=== PATIENT | female | born 1945 | race Caucasian/White ===

== ENCOUNTER → 2017-03-12 | Outpatient (CLI) | payer BC ==
--- NOTE | 2017-03-12 14:58 | MAMMOGRAPHY REPORT ---
BILATERAL DIGITAL SCREENING MAMMOGRAM WITH CAD: 03/12/2017 CLINICAL HISTORY: Routine screening. Patient has no complaints. TECHNIQUE: Bilateral CC and MLO views were obtained. Current study was also evaluated with a Comput er Aided Detection (CAD) system. COMPARISON: Comparison is made to exams dated: 03/08/2016 mammogram, 03/08/2015 mammogram, 03/04/2014 mammogram, 03/02/2013 mammogram, 02/25/2012 mammogram, and 02/20/2010 mammogram - [facility]. BREAST COMPOSITION: There are scattered areas of fibroglandular density in both breasts. FINDINGS: No new suspicious mass, architectural distortion or cluster of microcalcifications is see n. IMPRESSION: ACR BI-RADS CATEGORY 1: NEGATIVE There is no mammographic evidence of malignancy. A 1 year screening mammogram is recommended. The p atient will receive written notification of the results. Approximately 10% of breast cancers are not detected with mammography. A negative mammographic repor t should not delay biopsy if a clinically suggestive mass is present. Elaine Peralta M.D. ay/:03/12/2017 13:01:38 [employer]: Mansi QUESADA(Mayda)(M), [facility] letter sent: Normal 1/2 BI-RADS Code: ACR BI-RADS Category 1: Negative
== END | disposition home or self-care (01) ==
LOC: C.MAMM 08:59
PROVIDERS: ATTEND Family Medicine
DX: Z12.31 Encounter for screening mammogram for malignant neoplasm of breast (principal)

== ENCOUNTER → 2017-04-09 | Outpatient (CLI) | payer BC ==
--- NOTE | 2017-04-09 20:00 | DIAGNOSTIC IMAGING REPORT ---
LEFT SHOULDER MIN 2 VIEWS ROUTINE CLINICAL HISTORY: PAIN IN L SHOULDER COMPARISON: None. DISCUSSION: Considerable degenerative change of the glenoid and associated articular services of the humeral head. Mild subtle Hill-Sachs type deformity. As a nonacute finding. All remaining osseous structures are unremarkable. Subchondral cysts are noted throughout. There is no evidence for soft tissue swelling. IMPRESSION: Severe degenerative change. No acute process. Electronically signed by: Sandip Crook M.D. 04/09/2017 7:58 PM Dictated Date/Time: 04/09/2017 7:58 PM
== END | disposition home or self-care (01) ==
LOC: C.RAD 19:37
PROVIDERS: ATTEND Family Medicine
DX: M25.512 Pain in left shoulder (principal)

== ENCOUNTER → 2017-08-29 | Outpatient (CLI) | payer BC ==
--- NOTE | 2017-08-29 13:48 | DIAGNOSTIC IMAGING REPORT ---
R HIP UNILATERAL MIN 2 VIEWS CLINICAL HISTORY: Right hip pain COMPARISON: None. DISCUSSION: No acute fractures are visualized. There are osteoarthritic changes with mild to moderate joint space narrowing. There are no erosive or destructive changes. IMPRESSION: 1. Osteoarthritic change 2. No fractures identified. Electronically signed by: Magdaleno Henriquez M.D. 08/29/2017 1:46 PM Dictated Date/Time: 08/29/2017 1:46 PM
== END | disposition home or self-care (01) ==
LOC: C.RDSM 12:43
PROVIDERS: ATTEND Family Medicine
DX: M25.551 Pain in right hip (principal)

== ENCOUNTER 2020-03-14 15:07 | Observation (INO) ==
--- NOTE | 2020-03-14 15:24 | Emergency Department Note ---
Impression & Plan Atypical chest pain, Light-headed ED Provider Note NAME: PEDRO AVENDAÑO AGE: 74 SEX: F : 1945 ARRIVES VIA: Walk-In INFORMANT: Patient, ED PROVIDER(S): Moody Slaughter MD Chief Complaint: Chest pain HPI: Patient is present with concern for chest pain. Patient describes it as right-sided and substernal. Nonradiating but does also have left shoulder pain. Patient denies any diaphoresis, nausea vomiting. No exertional symptoms but the patient has not been active. Pain started just prior to arrival. The patient was watching TV and was not doing anything exertional. The patient denies history of heart or lung history. Patient has no history of DVT or PE no recent travel. Did try taking Rolaids prior to arrival but that did not improve her symptoms. Patient does not present with cough, fevers, chills, coronavirus contacts, coronavirus testing, or recent travel. ROS: See HPI for pertinent positives and negatives. A total of 10 systems were reviewed and otherwise negative. Past medical history: See below Surgical history: See below Social history: See below Physical Exam: GENERAL: Nontoxic, wearing a mask and glasses. EYE EXAM: Normal conjunctiva. PERRL, no anisocoria and EOM's grossly intact w/o pain. NECK: Supple, no nuchal rigidity, no adenopathy, non-tender. No signs of m eningismus. Chest: No reproducible chest wall pain or crepitus noted. LUNGS: Clear to auscultation. Normal chest wall mechanics. HEART: NSR, no MRG. ABDOMEN: Abdomen soft, non-tender, normo-active bowel sounds, no masses, no rebound or guarding. BACK: No CVA TTP. SKIN: No rashes and no bruising. UPPER EXTREMITIES: Upper extremities are grossly normal. LOWER EXTREMITIES: Grossly normal, no edema. Negative Homans sign bilaterally. NEURO EXAM: A&O x3, cranial nerves II-XII grossly intact, normal speech, moves all 4 extremities on command w/o issue. Differential diagnoses: Cardiac ischemia, aortic dissection, pulmonary embolism, pneumothorax, pneumonia, pericarditis, myocarditis, esophageal rupture, GERD, cholecystitis, pancreatitis, musculoskeletal, as well as other pathologies. Course: Patient was seen and evaluated the bedside. Full history physical exam was performed. EKG: Indication: Chest pain Sinus rhythm with first-degree AV block, rate of 95, normal QRS, normal axis, T wave inversion in lead III and aVF. No obvious ST changes. T wave inversion may be new compared to 02/26 2006 but does appear to be flat in 2005 with T wave version in lead III being unchanged from before. Patient's first-degree AV block is new. Repeat completed at 1619 Sinus rhythm with first-degree AV block, rate of 89, normal QRS duration and normal axis. T wave version in lead III and aVF. No significant change from earlier EKG during visit. Imaging Studies: Radiology results as stated below per my review in the radiologist's interpretation: XR chest 1V portable CLINICAL HISTORY: Chest Pain dyspnea COMPARISON STUDY: No previous studies for comparison. FINDINGS: Mild cardiomegaly. Fixed hiatal hernia. Minimal atelectasis left base. Lungs otherwise appear clear. IMPRESSION: Hiatal hernia. Atelectasis left base. ACT 112: Negative or not required by law. The above report was generated using voice recognition software. It may contain grammatical, syntax or spelling errors. Electronically signed by: Sandip Crook M.D. 03/14/2020 4:20 PM Dictated: 03/14/20 1620 Transcribed: 03/14/20 1620 Cardiac monitoring: An order was placed for continuous cardiac monitoring. The monitor shows a rate of 96 with sinus rhythm. MDM: She did present with concern for chest pain. Blood work was obtained along with an EKG troponin and chest x-ray. The patient had been set up for chest x-ray noticed a slight drop in her heart rate and blood pressure. Patient may have h ad a vagal response. Repeat EKG and [id number] blood glucose were obtained. EKG is unchanged. Heart rate did improve with laying flat. IV fluids were administered and BSG was 126. Upon reassessment the patient did feel improved after the aspirin and nitro. In the improvement of her chest pain as well as her age believe the patient would benefit from observation and treatment. I did speak the on-call hospitalist and the patient was admitted to the [facility] medicine service under Dr. De Leon. 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 Social History Preferred Language: Macanese Communication Ability: Effective Beliefs That Will Affect Care: None Current Living Situation: Spouse Feels Safe at Home: Yes Safety Concerns: Feels Safe At This Time Smoking Status: Never smoker Hx Alcohol Use: No Hx Substance Use: No Allergies Allergies Allergy/AdvReac Type Severity Reaction Status Date / Time No Known Allergies Allergy Unknown Verified 03/14/20 15:37 Home Meds Home Medications Medication Instructions Recorded Confirmed No Known Home Medications 03/14/20 03/14/20 Results & Data (ED) Vital Signs Vital Signs - 24 hr 03/14/20 15:09 03/14/20 15:29 03/14/20 15:30 Temperature 36.7 C Temperature Source Oral Pulse Rate 101 H 95 H 93 H Pulse Rate from SpO2 Sensor Respiratory Rate 20 25 H 21 Respiratory Effort / Characteristics Non-Labored Spontaneous Respiratory Depth Normal Respiratory Pattern Regular Blood Pressure 151/87 H Blood Pressure Mean 108 Pulse Oximetry 95 Oxygen Delivery Method Room Air Sepsis Recent Fever Within 48 Hours No Sepsis Action Taken by Nursing No Action Required 03/14/20 16:00 03/14/20 16:13 03/14/20 16:14 Temperature Temperature Source Pulse Rate 86 93 H Pulse Rate from SpO2 Sensor 92 H Respiratory Rate 26 H 26 H Respiratory Effort / Characteristics Respiratory Depth Respiratory Pattern Blood Pressure 142/74 H Blood Pressure Mean 95 Pulse Oximetry 91 89 L Oxygen Delivery Method Room Air Sepsis Recent Fever Within 48 Hours Sepsis Action Taken by Nursing 03/14/20 16:18 03/14/20 16:22 03/14/20 16:30 Temperature Temperature Source Pulse Rate 96 H 84 89 Pulse Rate from SpO2 Sensor 90 84 89 Respiratory Rate 18 23 16 Respiratory Effort / Characteristics Respiratory Depth Respiratory Pattern Blood Pressure 97/60 L 120/67 Blood Pressure Mean 76 85 Pulse Oximetry 87 L 95 89 L Oxygen Delivery Method Sepsis Recent Fever Within 48 Hours Sepsis Action Taken by Nursing 03/14/20 17:00 03/14/20 17:01 03/14/20 17:26 Temperature Temperature Source Pulse Rate 100 H 100 H 103 H Pulse Rate from SpO2 Sensor 99 H 99 H Respiratory Rate 14 13 16 Respiratory Effort / Characteristics Respiratory Depth Respiratory Pattern Blood Pressure 120/67 120/54 L Blood Pressure Mean 85 68 Pulse Oximetry 90 90 Oxygen Delivery Method Sepsis Recent Fever Within 48 Hours Sepsis Action Taken by Nursing 03/14/20 17:30 03/14/20 18:00 03/14/20 18:14 Temperature Temperature Source Pulse Rate 103 H 102 H Pulse Rate from SpO2 Sensor 102 H Respiratory Rate 15 20 Respiratory Effort / Characteristics Respiratory Depth Respiratory Pattern Blood Pressure 117/61 127/79 Blood Pressure Mean 83 88 Pulse Oximetry 94 93 Oxygen Delivery Method Room Air Sepsis Recent Fever Within 48 Hours Sepsis Action Taken by Nursing 03/14/20 18:30 03/14/20 18:40 03/14/20 18:50 Temperature Temperature Source Pulse Rate 106 H 104 H 106 H Pulse Rate from SpO2 Sensor 107 H 103 H 108 H Respiratory Rate 20 19 20 Respiratory Effort / Characteristics Respiratory Depth Respiratory Pattern Blood Pressure 110/75 Blood Pressure Mean 90 Pulse Oximetry 91 91 90 Oxygen Delivery Method Sepsis Recent Fever Within 48 Hours Sepsis Action Taken by Nursing 03/14/20 19:00 03/14/20 19:10 Temperature Temperature Source Pulse Rate 104 H 103 H Pulse Rate from SpO2 Sensor 105 H 104 H Respiratory Rate 26 H 18 Respiratory Effort / Characteristics Respiratory Depth Respiratory Pattern Blood Pressure 115/63 Blood Pressure Mean 67 Pulse Oximetry 91 91 Oxygen Delivery Method Sepsis Recent Fever Within 48 Hours Sepsis Action Taken by Long-Term Medications Current Medication List: was personally reviewed by me Laboratory Data Attestation: I reviewed the patient's lab results. Result diagrams: 03/14/20 16:05 03/14/20 16:05 Lab Results 03/14/20 03/14/20 03/14/20 Range/Units 16:05 16:05 16:05 WBC 6.29 (4.8-10.8) K/uL RBC 5.52 H (4.2-5.4) M/uL Hgb 15.1 (12.0-16.0) g/dL Hct 46.6 (37-47) % MCV 84.4 (80-100) fL MCH 27.4 (25-34) pg MCHC 32.4 (32-36) g/dL RDW Std Deviation 43.1 (36.4-46.3) fL RDW Coeff of Vincenzo 14.0 (11.5-14.5) % Plt Count 202 (130-400) K/uL MPV 9.3 (7.4-10.4) fL Immature Gran % (Auto) 0.3 % Neut % (Auto) 68.2 % Lymph % (Auto) 22.9 % [place] % (Auto) 7.2 % Eos % (Auto) 1.1 % Baso % (Auto) 0.3 % Immature Gran # (Auto) 0.02 (0.00-0.02) K/uL Neut # (Auto) 4.29 (1.4-6.5) K/uL Lymph # (Auto) 1.44 (1.2-3.4) K/uL [place] # (Auto) 0.45 (0.11-0.59) K/uL Eos # (Auto) 0.07 (0-0.5) K/uL Baso # (Auto) 0.02 (0-0.2) K/uL PT 10.7 (9.0-12.0) Seconds INR 1.0 (0.9-1.1) APTT 24.8 (21.0-31.0) Seconds PTT Ratio 0.9 D-Dimer (0-500) ug/L FEU Sodium 141 (136-145) mmol/L Potassium 3.7 (3.5-5.1) mmol/L Chloride 106 (98-107) mmol/L Carbon Dioxide 28 (21-32) mmol/L Anion Gap 7.0 (3-11) BUN 15 (7-18) mg/dl Creatinine 0.84 (0.6-1.2) mg/dl Est Cr Clr Drug Dosing 51.5 ml/min Est GFR ( Amer) 78.2 Est GFR (Non-Af Amer) 67.5 BUN/Creatinine Ratio 17.9 (10-20) Glucose 113 H (70-99) mg/dl POC Glucose (70-99) mg/dl Calcium 9.6 (8.5-10.1) mg/dl Total Bilirubin 0.3 (0.2-1) mg/dl AST 13 L (15-37) U/L ALT 19 (12-78) U/L Alkaline Phosphatase 97 (45-117) U/L Troponin I < 0.015 (0-0.045) ng/ml Total Protein 7.5 (6.4-8.2) gm/dl Albumin 3.8 (3.4-5.0) gm/dl Globulin 3.7 (2.5-4.0) gm/dl Albumin/Globulin Ratio 1.0 (0.9-2) Lipase 159 (73-393) U/L 03/14/20 03/14/20 Range/Units 16:05 16:22 WBC (4.8-10.8) K/uL RBC (4.2-5.4) M/uL Hgb (12.0-16.0) g/dL Hct (37-47) % MCV (80-100) fL MCH (25-34) pg MCHC (32-36) g/dL RDW Std Deviation (36.4-46.3) fL RDW Coeff of Vincenzo (11.5-14.5) % Plt Count (130-400) K/uL MPV (7.4-10.4) fL Immature Gran % (Auto) % Neut % (Auto) % Lymph % (Auto) % [place] % (Auto) % Eos % (Auto) % Baso % (Auto) % Immature Gran # (Auto) (0.00-0.02) K/uL Neut # (Auto) (1.4-6.5) K/uL Lymph # (Auto) (1.2-3.4) K/uL [place] # (Auto) (0.11-0.59) K/uL Eos # (Auto) (0-0.5) K/uL Baso # (Auto) (0-0.2) K/uL PT (9.0-12.0) Seconds INR (0.9-1.1) APTT (21.0-31.0) Seconds PTT Ratio D-Dimer 1010 H* (0-500) ug/L FEU Sodium (136-145) mmol/L Potassium (3.5-5.1) mmol/L Chloride (98-107) mmol/L Carbon Dioxide (21-32) mmol/L Anion Gap (3-11) BUN (7-18) mg/dl Creatinine (0.6-1.2) mg/dl Est Cr Clr Drug Dosing ml/min Est GFR ( Amer) Est GFR (Non-Af Amer) BUN/Creatinine Ratio (10-20) Glucose (70-99) mg/dl POC Glucose 126 H (70-99) mg/dl Calcium (8.5-10.1) mg/dl Total Bilirubin (0.2-1) mg/dl AST (15-37) U/L ALT (12-78) U/L Alkaline Phosphatase (45-117) U/L Troponin I (0-0.045) ng/ml Total Protein (6.4-8.2) gm/dl Albumin (3.4-5.0) gm/dl Globulin (2.5-4.0) gm/dl Albumin/Globulin Ratio (0.9-2) Lipase (73-393) U/L Administered Medications Ioversol (Optiray 320 125ml) 118 ml IV ONCE PRN PRN Reason: Interaction Checking Stop: 03/18/20 19:02 Last Admin: 03/14/20 19:04 Dose: 1 ml Documented by: [id number] Discontinued Medications Aspirin (Aspirin) 324 mg PO NOW STA Stop: 03/14/20 15:39 Last Admin: 03/14/20 16:11 Dose: 324 mg Documented by: [id number] Sodium Chloride (Nss) 500 mls @ 999 mls/hr IV .Q31M KAYODE Stop: 03/14/20 16:15 Last Infusion: 03/14/20 17:15 Dose: 0 mls/hr Documented by: [id number] Admin: 03/14/20 16:11 Dose: 999 mls/hr Documented by: [id number] Nitroglycerin (Nitrostat) 0.4 mg SL NOW STA Stop: 03/14/20 15:39 Last Admin: 03/14/20 16:11 Dose: 0.4 mg Documented by: [id number] Discharge Plan Visit Data Chief Complaint: Chest Pain Stated Complaint: CHEST PAIN,NAUSEA ED Provider: Moody Slaughter Discharge Problem: Atypical chest pain, Light-headed Forms Stand Alone Forms: [employer] Prescriptions Prescriptions: No Action No Known Home Medications RF: 0
[2020-03-14] MEDS ORDERED: NITROGLYCERIN SL 0.4 MG/TAB TAB SL STA (15:38)
[2020-03-14] MEDS ORDERED: ASPIRIN CHEW 324 MG PO STA (15:38)
[2020-03-14] MEDS ORDERED: SODIUM CHLORIDE 0.9% 500 ML IV SCH (15:45)
[2020-03-14 16:20] LABS: Basophils # (auto) 0.02 K/uL (0-0.2); Basophils % (auto) 0.3 %; Eosinophils # (auto) 0.07 K/uL (0-0.5); Eosinophils % (auto) 1.1 %; Hematocrit (blood only) 46.6 % (37-47); Hemoglobin 15.1 g/dL (12.0-16.0); Immature Granulocytes # (auto) 0.02 K/uL (0.00-0.02); Immature Granulocytes % (auto) 0.3 %; Lymphocytes # (auto) 1.44 K/uL (1.2-3.4); Lymphocytes % (auto) 22.9 %; Mean Corpuscular Hemoglobin 27.4 pg (25-34); Mean Corpuscular Hgb Conc 32.4 g/dL (32-36); Mean Corpuscular Volume 84.4 fL (80-100); Mean Platelet Volume 9.3 fL (7.4-10.4); Monocytes # (auto) 0.45 K/uL (0.11-0.59); Monocytes % (auto) 7.2 %; Neutrophils # (auto) 4.29 K/uL (1.4-6.5); Neutrophils % (auto) 68.2 %; Platelet Count 202 K/uL (130-400); RDW Standard Deviation 43.1 fL (36.4-46.3); Red Blood Count 5.52 M/uL (4.2-5.4); White Blood Count 6.29 K/uL (4.8-10.8)
--- NOTE | 2020-03-14 16:21 | XRay Report ---
XR chest 1V portable CLINICAL HISTORY: Chest Pain dyspnea COMPARISON STUDY: No previous studies for comparison. FINDINGS: Mild cardiomegaly. Fixed hiatal hernia. Minimal atelectasis left base. Lungs otherwise appe ar clear. IMPRESSION: Hiatal hernia. Atelectasis left base. ACT 112: Negative or not required by law. The above report was generated using voice recognition software. It may contain grammatical, syntax or spelling errors. Electronically signed by: aSndip Crook M.D. 03/14/2020 4:20 PM
[2020-03-14 16:32] LABS: Partial Thromboplastin Ratio 0.9; Partial Thromboplastin Time 24.8 Seconds (21.0-31.0); Prothrombin Time 10.7 Seconds (9.0-12.0)
[2020-03-14 16:42] LABS: Alanine Aminotransferase 19 U/L (12-78); Albumin Level 3.8 gm/dl (3.4-5.0); Aspartate Aminotransferase 13 U/L (15-37); BUN Creatinine Ratio 17.9 (10-20); Blood Urea Nitrogen 15 mg/dl (7-18); Calcium 9.6 mg/dl (8.5-10.1); Carbon Dioxide 28 mmol/L (21-32); Chloride 106 mmol/L (98-107); Creatinine Clr Calc Pharmacy 51.5 ml/min; Est GFR (African American) 78.2; Est GFR (Non-African American) 67.5; Glucose 113 mg/dl (70-99); Lipase 159 U/L (73-393); Potassium 3.7 mmol/L (3.5-5.1); Sodium 141 mmol/L (136-145)
[2020-03-14 16:47] LABS: Alkaline Phosphatase 97 U/L (45-117); Bilirubin,Total 0.3 mg/dl (0.2-1); Globulin 3.7 gm/dl (2.5-4.0); Total Protein 7.5 gm/dl (6.4-8.2); Troponin I < 0.015 ng/ml (0-0.045)
--- NOTE | 2020-03-14 17:58 | History & Physical Report ---
Date of Service March 14, 2020 Assessment & Plan (1) Atypical chest pain: Patient is a 74-year-old fairly healthy female here with atypical chest pain waxing and waning over the last 2 days, with some fairly nonspecific T wave inversions on ECG. Her pain was relieved with nitroglycerin in the ER Also had an episode briefly of hypotension and bradycardia to the 30s with sitting up from a lying to a seated position prior to receiving nitroglycerin in the ER. Chest x-ray consistent with large hiatal hernia. Initial troponin was negative. This is not musculoskeletal chest pain. She has no other real significant risk factors for heart disease other than age and family history. D-dimer checked after admission was elevated -Admit to medical floor with telemetry on observation -Serial troponin, daily ECG -Will get resting echocardiogram to look for wall motion abnormalities -Will get CT angiogram of the chest to rule out PE given elevated d-dimer and to further evaluate her large hiatal hernia -Add on Pepcid 20 mg p.o. twice daily to treat for acid reflux type symptoms given large hiatal hernia -Start aspirin 81 mg once daily -Check lipid panel in the morning -N.p.o. after midnight for possible stress test tomorrow if rules out for ACS overnight -Consider outpatient consultation with thoracic surgery for her large hiatal hernia if continues to be symptomatic (2) Osteoarthritis: Takes Tylenol as needed Status post bilateral knee and right hip joint replacements (3) Light-headed: Had some brief hypotension and bradycardia causing lightheadedness after going from a lying to seated position for her chest x-ray in the ER Could be vagal response secondary to large hiatal hernia (4) Hiatal hernia: As above Adding Pepcid (5) DVT prophylaxis: Lovenox SQ, SCDs Disposition-admit on observation for chest pain rule out admission overnight and likely discharge to home tomorrow Full code History of Present Illness Chief Complaint: Chest pain Primary Care Provider: Abiola Gill This patient is a 74-year-old female with a history of osteoarthritis, who presents to the ER with upper mid chest pain that has been coming and going over the last 2 days but much worse on the day of admission. There were times when the pain would go completely away, but when she had it, it was a 4/10 in severity at the worst, she could not describe the quality of the pain, it was not worse with exertion or rest, and did not go away with Rolaids at home. It did however eventually go away after receiving nitroglycerin in the ER and when I saw her, she was completely chest pain-free. She denies any history of GERD symptoms or diagnosis, but was found to have a large hiatal hernia on chest x- ray in the ER. She has no history of cardiac issues and thinks perhaps she had a stress test many years ago but cannot recall the results. Typically, she can easily go up and down a flight of stairs without any chest pain or shortness of breath. She did have her right hip replaced in 11/2019 and did attend some physical therapy prior to CoVid-19 pandemic occurring. Since then, she has been doing home exercises and getting around fine. She denies any leg swelling or calf pain and she is quite active. In the ER, again, the chest x-ray showed a large hiatal hernia. Her ECG did show some T wave inversions in leads III and aVF which were not much changed from before. She did get slightly hypotensive and bradycardic down to the 30s along with lightheadedness when she was set up for her chest x-ray, but this quickly resolved with laying her flat and giving her a 500 mL bolus of normal saline. Her troponin was negative, LFTs and lipase were negative, CBC was normal, and electrolytes and renal function were normal. She denies any recent nausea/vomiting/diarrhea, no fevers, sore throat, myalgias, shortness of breath, or coughing. She has not had any exposures to any known CoVid-19 patients. She will be admitted on observation for atypical chest pain to rule out cardiac cause. Allergies Allergy/AdvReac Type Severity Reaction Status Date / Time No Known Allergies Allergy Unknown Verified 03/14/20 15:37 Home Medications Home Medications Medication Instructions Recorded Confirmed Type No Known Home Medications 03/14/20 03/14/20 History Past Med/Surg History Medical History Fall (Resolved) Osteoarthritis Surgical History History of total hip arthroplasty History of total knee arthroplasty Knee joint replacement status (Resolved) Knee joint replacement status Family History Father , in his early 50s Coronary heart disease Myocardial infarction Mother , in her 90s Medical history non-contributory Brother Alcoholism Social History Preferred Language: Yakut Communication Ability: Effective Beliefs That Will Affect Care: None Current Living Situation: Spouse current occupational status: retired current occupation: Retired teacher and director of student activities at [employer] Feels Safe at Home: Yes Safety Concerns: Feels Safe At This Time Smoking Status: Never smoker Hx Alcohol Use: No Hx Substance Use: No Review of Systems Review of Systems: All systems reviewed & are unremarkable except as noted in HPI & below Physical Exam Constitutional: WD/WN, vitals as above Eyes: PERRL, conjunctivae normal, anicteric sclerae ENMT: external ear and nose normal, oropharynx normal Neck: trachea midline, no thyromegaly Respiratory: normal respiratory effort, lungs clear to auscultation Cardiovascular: RRR, no murmur, no edema Vessels: dorsalis pedis pulses present Extremities: no calf tenderness Chest (Breasts): Chest: normal inspection of chest (No tenderness to palpation over anterior chest wall) Gastrointestinal (Abdomen): normal bowel sounds, soft, nontender, no hepatosplenomegaly Musculoskeletal: Extremities: extremities normal to inspection; no cyanosis and no clubbing Skin: no rashes, warm and dry Neurologic: moves all extremities and awake; no focal motor deficits Psychiatric: A+Ox3, euthymic affect Lymphatic: no lymphedema Results & Data Results & Data ([facility]) Vital Signs (Past 12 Hours) Vital Signs Temp Pulse Resp BP Pulse Ox 03/14/20 16:13 91 03/14/20 15:09 36.7 C 101 H 20 151/87 H 95 Laboratory Results 03/14/20 03/14/20 03/14/20 Range/Units 16:22 16:05 16:05 WBC (4.8-10.8) K/uL RBC (4.2-5.4) M/uL Hgb (12.0-16.0) g/dL Hct (37-47) % MCV (80-100) fL MCH (25-34) pg MCHC (32-36) g/dL RDW Std Deviation (36.4-46.3) fL RDW Coeff of Vincenzo (11.5-14.5) % Plt Count (130-400) K/uL MPV (7.4-10.4) fL Immature Gran % (Auto) % Neut % (Auto) % Lymph % (Auto) % Mclean % (Auto) % Eos % (Auto) % Baso % (Auto) % Immature Gran # (Auto) (0.00-0.02) K/uL Neut # (Auto) (1.4-6.5) K/uL Lymph # (Auto) (1.2-3.4) K/uL Mclean # (Auto) (0.11-0.59) K/uL Eos # (Auto) (0-0.5) K/uL Baso # (Auto) (0-0.2) K/uL PT (9.0-12.0) Seconds INR (0.9-1.1) APTT (21.0-31.0) Seconds PTT Ratio D-Dimer 1010 H* (0-500) ug/L FEU Sodium 141 (136-145) mmol/L Potassium 3.7 (3.5-5.1) mmol/L Chloride 106 (98-107) mmol/L Carbon Dioxide 28 (21-32) mmol/L Anion Gap 7.0 (3-11) BUN 15 (7-18) mg/dl Creatinine 0.84 (0.6-1.2) mg/dl Est Cr Clr Drug Dosing 51.5 ml/min Est GFR ( Amer) 78.2 Est GFR (Non-Af Amer) 67.5 BUN/Creatinine Ratio 17.9 (10-20) Glucose 113 H (70-99) mg/dl POC Glucose 126 H (70-99) mg/dl Calcium 9.6 (8.5-10.1) mg/dl Total Bilirubin 0.3 (0.2-1) mg/dl AST 13 L (15-37) U/L ALT 19 (12-78) U/L Alkaline Phosphatase 97 (45-117) U/L Troponin I < 0.015 (0-0.045) ng/ml Total Protein 7.5 (6.4-8.2) gm/dl Albumin 3.8 (3.4-5.0) gm/dl Globulin 3.7 (2.5-4.0) gm/dl Albumin/Globulin Ratio 1.0 (0.9-2) Lipase 159 (73-393) U/L 03/14/20 03/14/20 Range/Units 16:05 16:05 WBC 6.29 (4.8-10.8) K/uL RBC 5.52 H (4.2-5.4) M/uL Hgb 15.1 (12.0-16.0) g/dL Hct 46.6 (37-47) % MCV 84.4 (80-100) fL MCH 27.4 (25-34) pg MCHC 32.4 (32-36) g/dL RDW Std Deviation 43.1 (36.4-46.3) fL RDW Coeff of Vincenzo 14.0 (11.5-14.5) % Plt Count 202 (130-400) K/uL MPV 9.3 (7.4-10.4) fL Immature Gran % (Auto) 0.3 % Neut % (Auto) 68.2 % Lymph % (Auto) 22.9 % Mclean % (Auto) 7.2 % Eos % (Auto) 1.1 % Baso % (Auto) 0.3 % Immature Gran # (Auto) 0.02 (0.00-0.02) K/uL Neut # (Auto) 4.29 (1.4-6.5) K/uL Lymph # (Auto) 1.44 (1.2-3.4) K/uL Mclean # (Auto) 0.45 (0.11-0.59) K/uL Eos # (Auto) 0.07 (0-0.5) K/uL Baso # (Auto) 0.02 (0-0.2) K/uL PT 10.7 (9.0-12.0) Seconds INR 1.0 (0.9-1.1) APTT 24.8 (21.0-31.0) Seconds PTT Ratio 0.9 D-Dimer (0-500) ug/L FEU Sodium (136-145) mmol/L Potassium (3.5-5.1) mmol/L Chloride (98-107) mmol/L Carbon Dioxide (21-32) mmol/L Anion Gap (3-11) BUN (7-18) mg/dl Creatinine (0.6-1.2) mg/dl Est Cr Clr Drug Dosing ml/min Est GFR ( Amer) Est GFR (Non-Af Amer) BUN/Creatinine Ratio (10-20) Glucose (70-99) mg/dl POC Glucose (70-99) mg/dl Calcium (8.5-10.1) mg/dl Total Bilirubin (0.2-1) mg/dl AST (15-37) U/L ALT (12-78) U/L Alkaline Phosphatase (45-117) U/L Troponin I (0-0.045) ng/ml Total Protein (6.4-8.2) gm/dl Albumin (3.4-5.0) gm/dl Globulin (2.5-4.0) gm/dl Albumin/Globulin Ratio (0.9-2) Lipase (73-393) U/L Diagnostic Findings Chest x-ray image was personally reviewed by me and agree with the following report: XR chest 1V portable CLINICAL HISTORY: Chest Pain dyspnea COMPARISON STUDY: No previous studies for comparison. FINDINGS: Mild cardiomegaly. Fixed hiatal hernia. Minimal atelectasis left base. Lungs otherwise appear clear. IMPRESSION: Hiatal hernia. Atelectasis left base. ECG Additional Comments: ECG with sinus rhythm, first-degree AV block, T wave inversions in leads III and aVF not much change from previous Code Status & VTE Plan Code Status Full code VTE Prophylaxis Plan VTE Prophylaxis will be ordered: Yes PG Care Time/CCT Total # of Minutes Spent Total Time Spent with Patient: Total time spent is greater than 50% in coordination of care (as documented) at patient's floor/unit and/or counseling patient: Coding Level of Care Code 85113 OBS Care - Level 3 Diagnoses Atypical chest pain R07.89 Osteoarthritis M19.90 Light-headed R42 Hiatal hernia K44.9 DVT prophylaxis Z29.9
[2020-03-14 18:38] LABS: D Dimer 1010 ug/L FEU (0-500)
[2020-03-14] MEDS ORDERED: OPTIRAY 320 125ml IV PRN (19:03)
--- NOTE | 2020-03-14 20:05 | CT Scan Report ---
CT ANGIOGRAM OF THE CHEST CLINICAL HISTORY: Atypical chest pain. Possible pulmonary embolism. COMPARISON STUDY: Chest x-ray dated 03/14/2020 TECHNIQUE: Following the IV administration of 116 mL of Optiray-320, CT angiogram of the thorax was p erformed from the thoracic inlet to the lung bases utilizing the pulmonary embolus protocol. Images a re reviewed in the axial, sagittal, and coronal planes. IV contrast was administered without complica tion. MIP imaging was performed. A dose lowering technique was utilized adhering to the principles o f ALARA. CT DOSE: 602.85 mGy.cm FINDINGS: No pathologically enlarged axillary mediastinal or hilar lymph nodes were visualized. There was no evidence of thoracic aortic dilatation. There were no pulmonary artery filling defects to indicate acute pulmonary embolism. There is a trace left pleural effusion. There is a large hiatal hernia. There are left lower lobe and solid changes likely atelectatic. There is a prominent dextroscoliosis. There is a 6 mm perifissural right lower lobe pulmonary nodule, statistically representing intrapulmo nary lymph node. IMPRESSION: 1. No evidence of acute pulmonary embolism 2. Large hiatal hernia 3. Trace left pleural effusion 4. Left lower lobe opacities, statistically atelectatic 5. 6 mm right lower lobe perifissural nodule, statistically representing intrapulmonary lymph node Please refer to below summary of Fleischner criteria recommendations for follow-up of incidental CT n odules (Merle Laura, Guidelines for management of small pulmonary nodules detected on CT scans: A sta tement from the Fleischner Society, Radiology 237: [phone].) SOLID NODULES Solitary nodule size: <6 mm * low risk patients: no follow-up needed * high risk patients: optional CT at 12 months Solitary nodule size: 6-8 mm * low risk patients: follow-up at 6-12 months, then consider further follow-up at 18-24 months * high risk patients: initial follow-up CT at 6-12 months and then at 18-24 months if no change Solitary nodule size: >8 mm * either low or high risk patients - consider follow-up CT at 3 months, and/or CT-PET, and/or biopsy Multiple nodules size: <6 mm * low risk patients: no routine follow-up * high risk patients: optional CT at 12 months Multiple nodules size: 6-8 mm * low risk patients: follow-up at 3-6 months, then consider further follow-up at 18-24 months * high risk patients: follow-up at 3-6 months, then at 18-24 months if no change Multiple nodules size: >8 mm * low risk patients: follow-up at 3-6 months, then consider further follow-up at 18-24 months * high risk patients: follow-up at 3-6 months, then at 18-24 months if no change Note: newly detected indeterminate nodule in persons 35 years of age or older. * low risk patients: minimal or absent history of smoking and/or other known risk factors * high risk patients: history of smoking or of other known risk factors (e.g. first degree relative with lung cancer, or exposure to asbestos, radon, uranium) * if a nodule up to 8 mm is partly solid or is ground glass further follow-up is required after 24 m onths to exclude possible slow growing adenocarcinoma (BHASKAR) SUBSOLID NODULES Solitary pure ground-glass nodule * nodule size <6 mm - no CT follow-up required * nodule size >=6 mm - follow-up CT at 6-12 months, then every 2 years until 5 years Solitary part-solid nodule * nodule size <6 mm - no CT follow-up required * nodule size >=6 mm - follow-up CT at 3-6 months. If unchanged, and solid component remains <6 mm, then annual follow-up for 5 years Multiple subsolid nodules * nodule size <6 mm - follow-up CT at 3-6 months, consider further follow-up at 2 and 4 years if sta ble * nodule size >=6 mm - follow-up CT at 3-6 months, subsequent management based on the most suspiciou s nodule(s) ACT 112: Negative or not required by law. Electronically signed by: Magdaleno Henriquez M.D. 03/14/2020 8:04 PM
[2020-03-14] MEDS ORDERED: POLYETHYLENE (MIRALAX) 17 GM PACK PO PRN (20:17)
[2020-03-14] MEDS ORDERED: ALUMINUM/MAGNESIUM SUSP 30 ML UDC PO PRN (20:17)
[2020-03-14] MEDS ORDERED: ACETAMINOPHEN 325 MG TAB PO PRN (20:17)
[2020-03-14] MEDS: FAMOTIDINE 10 MG TABLET PO SCH (20:48)
[2020-03-14] MEDS ORDERED: ENOXAPARIN INJ 40 MG/0.4 ML SYR SQ SCH (21:00)
[2020-03-15 06:15] LABS: BUN Creatinine Ratio 19.5 (10-20); Calcium 8.6 mg/dl (8.5-10.1); Creatinine Clr Calc Pharmacy 58.5 ml/min; Est GFR (African American) 91.2; Est GFR (Non-African American) 78.7; Potassium 3.7 mmol/L (3.5-5.1)
[2020-03-15] MEDS: FAMOTIDINE 10 MG TABLET PO SCH (07:41)
--- NOTE | 2020-03-15 08:08 | Hospitalist Progress Note ---
Date of Service March 15, 2020 Assessment & Plan (1) Atypical chest pain: Patient is a 74-year-old fairly healthy female here with atypical chest pain waxing and waning over the last 2 days, with some fairly nonspecific T wave inversions on ECG. Her pain was relieved with nitroglycerin in the ER Also had an episode briefly of hypotension and bradycardia to the 30s with sitting up from a lying to a seated position prior to receiving nitroglycerin in the ER. Chest x-ray consistent with large hiatal hernia. Initial troponin was negative. This is not musculoskeletal chest pain. She has no other real significant risk factors for heart disease other than age and family history. D-dimer checked after admission was elevated -Admit to medical floor with telemetry on observation -Serial troponin, daily ECG -Will get resting echocardiogram to look for wall motion abnormalities -Will get CT angiogram of the chest to rule out PE given elevated d-dimer and to further evaluate her large hiatal hernia -Add on Pepcid 20 mg p.o. twice daily to treat for acid reflux type symptoms given large hiatal hernia -Start aspirin 81 mg once daily -Check lipid panel in the morning -N.p.o. after midnight for possible stress test tomorrow if rules out for ACS overnight -Consider outpatient consultation with thoracic surgery for her large hiatal hernia if continues to be symptomatic (2) Osteoarthritis: Takes Tylenol as needed Status post bilateral knee and right hip joint replacements (3) Light-headed: Had some brief hypotension and bradycardia causing lightheadedness after going from a lying to seated position for her chest x-ray in the ER Could be vagal response secondary to large hiatal hernia (4) Hiatal hernia: As above Adding Pepcid (5) DVT prophylaxis: Lovenox SQ, SCDs Disposition-admit on observation for chest pain rule out admission overnight and likely discharge to home tomorrow Full code Admission and Anticipated Discharge Date Admission Date: March 14, 2020 Results & Data Results & Data ([facility]) Vital Signs (Past 12 Hours) Vital Signs Temp Pulse Pulse Pulse Resp BP Pulse Ox 03/15/20 07:26 98.6 F 65 16 123/74 93 03/15/20 04:00 98.1 F 66 18 136/81 93 03/15/20 00:20 79 149/81 H 03/15/20 00:00 93 H 06/01/20 23:38 98.6 F 91 H 15 175/77 H 91 03/14/20 20:17 98.4 F 105 H 17 130/77 96 03/14/20 20:09 114 H PG Care Time/CCT Total # of Minutes Spent Total Time Spent with Patient: Total time spent is greater than 50% in coordination of care (as documented) at patient's floor/unit and/or counseling patient: Coding Diagnoses Atypical chest pain R07.89 Osteoarthritis M19.90 Light-headed R42 Hiatal hernia K44.9 DVT prophylaxis Z29.9
[2020-03-15] MEDS ORDERED: ASPIRIN 81 MG ECTAB PO SCH (09:00)
--- NOTE | 2020-03-15 10:35 | XCELERA ---
[id number] \\[id number]
--- NOTE | 2020-03-15 11:48 | Electrocardiogram Report ---
Test Reason : Blood Pressure : / mmHG Vent. Rate : 095 BPM Atrial Rate : 095 BPM P-R Int : 212 ms QRS Dur : 084 ms QT Int : 352 ms P-R-T Axes : 038 -12 -28 degrees QTc Int : 442 ms Sinus rhythm with 1st degree A-V block Anterior infarct , age undetermined Abnormal ECG When compared with ECG of 29-NOV-2005 16:37, WA interval has increased T wave inversion more evident in Inferior leads Nonspecific T wave abnormality now evident in Lateral leads Confirmed by Rivera Severino ([id number]) on 03/15/2020 11:48:36 AM Referred By: REFERRED SELF Confirmed By:Rivera Severino
--- NOTE | 2020-03-15 11:52 | Electrocardiogram Report ---
Test Reason : Blood Pressure : / mmHG Vent. Rate : 089 BPM Atrial Rate : 089 BPM P-R Int : 224 ms QRS Dur : 084 ms QT Int : 382 ms P-R-T Axes : 055 017 -14 degrees QTc Int : 464 ms Sinus rhythm with 1st degree A-V block Possible Left atrial enlargement Possible Inferior infarct , age undetermined Anterior infarct (cited on or before 14-MAR-2020) Abnormal ECG When compared with ECG of 14-MAR-2020 15:18, (unconfirmed) No significant change was found Confirmed by Rivera Severino ([id number]) on 03/15/2020 11:51:26 AM Referred By: REFERRED SELF Confirmed By:Rivera Severino
--- NOTE | 2020-03-15 12:37 | Electrocardiogram Report ---
Test Reason : Blood Pressure : / mmHG Vent. Rate : 068 BPM Atrial Rate : 068 BPM P-R Int : 174 ms QRS Dur : 092 ms QT Int : 404 ms P-R-T Axes : 062 007 005 degrees QTc Int : 429 ms Normal sinus rhythm Cannot rule out Inferior infarct (cited on or before 14-MAR-2020) Poor R-wave progression: anterior IL vs. lead placement vs. LVH Abnormal ECG When compared with ECG of 14-MAR-2020 16:19, (unconfirmed) NV interval has decreased Confirmed by Rivera Severino ([id number]) on 03/15/2020 12:36:55 PM Referred By: REFERRED SELF Confirmed By:Rivera Severino
--- NOTE | 2020-03-15 14:41 | XCELERA ---
[id number] \\[id number]
--- NOTE | 2020-03-15 16:02 | Discharge Summary ---
Date of Service March 15, 2020 Admission HPI Per Admitting Provider This patient is a 74-year-old female with a history of osteoarthritis, who presents to the ER with upper mid chest pain that has been coming and going over the last 2 days but much worse on the day of admission. There were times when the pain would go completely away, but when she had it, it was a 4/10 in severity at the worst, she could not describe the quality of the pain, it was not worse with exertion or rest, and did not go away with Rolaids at home. It did however eventually go away after receiving nitroglycerin in the ER and when I saw her, she was completely chest pain-free. She denies any history of GERD symptoms or diagnosis, but was found to have a large hiatal hernia on chest x- ray in the ER. She has no history of cardiac issues and thinks perhaps she had a stress test many years ago but cannot recall the results. Typically, she can easily go up and down a flight of stairs without any chest pain or shortness of breath. She did have her right hip replaced in 11/2019 and did attend some physical therapy prior to CoVid-19 pandemic occurring. Since then, she has been doing home exercises and getting around fine. She denies any leg swelling or calf pain and she is quite active. In the ER, again, the chest x-ray showed a large hiatal hernia. Her ECG did show some T wave inversions in leads III and aVF which were not much changed from before. She did get slightly hypotensive and bradycardic down to the 30s along with lightheadedness when she was set up for her chest x-ray, but this quickly resolved with laying her flat and giving her a 500 mL bolus of normal saline. Her troponin was negative, LFTs and lipase were negative, CBC was normal, and electrolytes and renal function were normal. She denies any recent nausea/vomiting/diarrhea, no fevers, sore throat, myalgias, shortness of breath, or coughing. She has not had any exposures to any known CoVid-19 patients. She will be admitted on observation for atypical chest pain to rule out cardiac cause. Principal Diagnosis non cardiac chest pain, non diagnostic stress test but no reproducible symptoms Discharge Exam The patient appeared well although slightly agitated from being here and having memory impairment Vital signs as documented. Lungs are clear to auscultation and appear unlabored Cardiac exam, Rhythm is regular.. No murmurs, rubs or gallops. Abdominal exam reveals normal bowel sounds, soft non tender, no masses Extremities are nonedematous and both pedal pulses are normal. Neurologic exam is alert and oriented, no focal loss of strength or sensation Skin is without bruises or rashes Psychologically is with concerns for dementia Discharge Data Allergies Allergy/AdvReac Type Severity Reaction Status Date / Time No Known Allergies Allergy Unknown Verified 03/14/20 15:37 Consultations 03/14/20 17:59 ED Decision to Admit Stat Ordered Studies 03/14/20 18:52 CT angio chest PE protocol Stat Hospital Course (1) Atypical chest pain: Patient is a 74-year-old fairly healthy female here with atypical chest pain waxing and waning over the last 2 days, with some fairly nonspecific T wave inversions on ECG. Her pain was relieved with nitroglycerin in the ER Also had an episode briefly of hypotension and bradycardia to the 30s with sitting up from a lying to a seated position prior to receiving nitroglycerin in the ER. Chest x-ray consistent with large hiatal hernia. troponins are negative x2. She has no other real significant risk factors for heart disease other than age and family history. D-dimer checked after admission was elevated, subsequent CT angiogram of her chest did not show any pulmonary embolisms or aneurysm issues within her chest Patient had a normal echocardiogram attempted a stress echocardiogram only met with 2 minutes of exercise exertion however during that short span of exertion, which was nondiagnostic by heart rate criteria, she denied any suspicious areas noted on echocardiography. Subsequently the patient was left to go home with a nondiagnostic stress but with negative testing is best we could do. Certainly if her symptoms do persist we may need to pursue more aggressive testing which would be challenging given the patient's dementia and her ability to stay still for nuclear imaging or dobutamine stress testing. (2) Osteoarthritis: Takes Tylenol as needed Status post bilateral knee and right hip joint replacements (3) Light-headed: Had some brief hypotension and bradycardia causing lightheadedness after going from a lying to seated position for her chest x-ray in the ER Whitlash most likely to be vagal response secondary to large hiatal hernia (4) Hiatal hernia: Could be etiology of her chest discomfort she will be prescribed Protonix with family medicine follow-up Total Time Total Time Spent Total Time Spent (In Minutes): It required greater than 30 minutes to prepare this patient for discharge Discharge Plan Discharge Items Patient Disposition: Home - Home Health Services Reason For Visit: CHEST PAIN Discharge Diagnosis: non cardiac chest pain Activity: Resume your previous activity Non-emergency contact: Primary Care Provider Call non-emergency contact if: you have any medication questions Follow-up/Referrals: Abiola Gill [Primary Care Provider] - 03/21/20 9:50 am (A follow up appt. has been made for you with Dr. Gill on March 21 at 9:50am.) Diet: Regular Addtl Attending Provider Instructions: please see your primary care provider for follow up in one week Pending Studies at Discharge: No Stand-Alone Forms: My [employer], Smoking Cessation Medications and DC Order Prescriptions: New Protonix [address] for susp in packet 40 mg PO DAILY Qty: 30 RF: 5 No Action No Known Home Medications RF: 0 Discharge Orders: Discharge Order (Routine); Ordered 03/15/20 Ordered By: Lai Gallegos Admission Data Admit Date/Time: 03/14/20 18:25 Attending Provider: Lai Gallegos Admit Provider: Hien De Leon Primary Care Provider: Abiola Gill Other Providers: Hien De Leon Other Interventions: Discharge Summary Assessment (RN) Last Done: 03/15/20 15:50 Coding Level of Care Code D/C Day Management >30 mins Diagnoses Atypical chest pain R07.89 Osteoarthritis M19.90 Light-headed R42 Hiatal hernia K44.9
== END 2020-03-15 16:17 | disposition home health service (06) ==
LOC: 2N 15:07 → ED 15:07 → SUATTDRO 18:25 → 2N 19:35

== ENCOUNTER 2021-07-13 21:25 | Inpatient (IN) ==
[2021-07-13] MEDS ORDERED: SODIUM CHLORIDE 0.9% 1000ML 500 ML IV ONE (22:07)
[2021-07-13 22:18] LABS: Basophils # (auto) 0.03 K/uL (0-0.2); Basophils % (auto) 0.7 %; Eosinophils # (auto) 0.03 K/uL (0-0.5); Eosinophils % (auto) 0.7 %; Hematocrit (blood only) 40.4 % (37-47); Hemoglobin 14.7 g/dL (12.0-16.0); Immature Granulocytes # (auto) 0.01 K/uL (0.00-0.02); Immature Granulocytes % (auto) 0.2 %; Lymphocytes # (auto) 1.01 K/uL (1.2-3.4); Lymphocytes % (auto) 22.5 %; Mean Corpuscular Hemoglobin 29.8 pg (25-34); Mean Corpuscular Hgb Conc 36.4 g/dL (32-36); Mean Corpuscular Volume 81.9 fL (80-100); Mean Platelet Volume 9.3 fL (7.4-10.4); Monocytes # (auto) 0.35 K/uL (0.11-0.59); Monocytes % (auto) 7.8 %; Neutrophils # (auto) 3.06 K/uL (1.4-6.5); Neutrophils % (auto) 68.1 %; Platelet Count 184 K/uL (130-400); RDW Coefficient of Variation 13.7 % (11.5-14.5); RDW Standard Deviation 41.1 fL (36.4-46.3); Red Blood Count 4.93 M/uL (4.2-5.4); White Blood Count 4.49 K/uL (4.8-10.8)
[2021-07-13 22:31] LABS: INR 1.1 (0.9-1.1); Partial Thromboplastin Ratio 0.9; Partial Thromboplastin Time 22.5 Seconds (21.0-31.0); Prothrombin Time 11.4 Seconds (9.0-12.0)
[2021-07-13 22:50] LABS: Alanine Aminotransferase 46 U/L (12-78); Albumin Globulin Ratio 0.9 (0.9-2); Albumin Level 3.4 gm/dl (3.4-5.0); Alkaline Phosphatase 98 U/L (45-117); Aspartate Aminotransferase 42 U/L (15-37); BUN Creatinine Ratio 22.7 (10-20); Bilirubin,Total 1.1 mg/dl (0.2-1); Blood Urea Nitrogen 21 mg/dl (7-18); Calcium 10.9 mg/dl (8.5-10.1); Carbon Dioxide 37 mmol/L (21-32); Chloride 94 mmol/L (98-107); Creatine Kinase 25 U/L (26-192); Est GFR (African American) 68.7 ml/min; Est GFR (Non-African American) 59.3 ml/min; Globulin 3.6 gm/dl (2.5-4.0); Glucose 136 mg/dl (70-99); Magnesium 1.6 mg/dl (1.8-2.4); Potassium 2.4 mmol/L (3.5-5.1); Sodium 137 mmol/L (136-145); Troponin I < 0.015 ng/ml (0-0.045)
[2021-07-13] MEDS ORDERED: POTASSIUM CHLORIDE 20 MEQ/15 ML UDC PO STA (22:54)
[2021-07-13] MEDS: POTASSIUM CHLORIDE / WTR 10 MEQ/100 ML PLCT IV SCH (23:26)
[2021-07-13] MEDS: MAGNESIUM SULFATE / D5W 1 GM/100 ML BAG IV SCH (23:31)
[2021-07-14] MEDS: MAGNESIUM SULFATE / D5W 1 GM/100 ML BAG IV SCH (00:49)
[2021-07-14] MEDS: POTASSIUM CHLORIDE / WTR 10 MEQ/100 ML PLCT IV SCH ×8 (00:49→23:34)
--- NOTE | 2021-07-14 02:31 | History & Physical Report ---
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 Patient with known history of dementia, and may be progressive Decreased oral intake is led to both low potassium and low magnesium Patient is dehydrated and has had decrease calories. We will place on NSS + KCl 20 mEq at 125 mils per hour Once patient is optimized with fluid balance, potassium and magnesium, a consult PT/OT should be considered, and whether patient's current living situation will need to be addressed As discussed with her son, the patient is a full code (2) Hypokalemia: Plan: She did receive IV and oral replacement in the ED, and will retest in a.m. (3) Hypomagnesemia: Plan: She did receive IV replacement in the ED, and will be retested in the a.m. (4) Acute dehydration: Plan: IV fluids as noted above (5) Dementia: Plan: Unclear how much progression of underlying dementia has to explain her present symptoms. (6) Cerebral infarction: Plan: CT of head and MRI brain both confirm old right MCA territory infarct, that the patient's son was not aware had occurred in the past Admission and Anticipated Discharge Date Admission Date: July 14, 2021 History of Present Illness Chief Complaint: The patient is brought to the emergency department by her son, due to increased confusion, generalized weakness and constipation. Primary Care Provider: Abiola Gill The patient is unable to contribute to her HPI or review of systems due to present confusion state. Her son reports that she has not been wanting to eat or drink at all, has been acting more confused, but the patient herself has no complaints. The son reports that she has not had any signs of chest pain, shortness of breath, vomiting, diarrhea, fevers or chills. Allergies Allergy/AdvReac Type Severity Reaction Status Date / Time No Known Allergies Allergy Unknown Verified 07/14/21 00:27 Home Medications Medication Instructions Recorded Confirmed Type donepezil 10 mg tablet 10 mg PO HS 07/14/21 07/14/21 History famotidine 40 mg tablet 40 mg PO HS 07/14/21 07/14/21 History omeprazole 40 mg capsule,delayed 40 mg PO DAILYBB 07/14/21 07/14/21 History release Past Med/Surg History Medical History (Updated 07/14/21 @ 05:22 by Manuel Hills MD) Cerebral infarction Dementia Hiatal hernia Osteoarthritis Poor historian unaware of why she takes Pantoprazole. denies heartburn and abdominal pain. Alert and Oriented x3. Surgical History History of cataract surgery RT History of colonoscopy History of total hip arthroplasty right History of total knee arthroplasty bilateral Family History Father , in his early 50s Coronary heart disease Myocardial infarction Mother , in her 90s Medical history non-contributory Brother Alcoholism Social History Smoking Status: Never smoker Second Hand Exposure: No; Hx Alcohol Use: No Hx Substance Use: No Preferred Language: [place] Communication Ability: Impaired General Cleaner Required: No Beliefs That Will Affect Care: None marital status: Current Living Situation: Spouse current occupational status: retired current occupation: Retired teacher and director of student activities at [employer] Feels Safe at Home: Yes Assistive Devices: Glasses Review of Systems Review of Systems: The patient is not able to contribute to review of systems due to present confused state, and information is supplied patient's son as n oted above Physical Exam Physical Exam: The patient is awake, nonresponsive, normocephalic and atraumatic, lying in bed and in no acute distress. HEENT--PERRL, EOMI, mucous membranes and oropharynx dry. Neck--supple. No JVD. No bruits. Thyroid normal, trachea midline, no adenopathy. Heart--normal S1 and S2. No murmurs, rubs or gallops. Lungs--clear bilaterally, no respiratory distress, no accessory muscle use. Abdomen--normal bowel sounds and soft. Nontender. Nondistended, no hernias or masses, no organomegaly. Extremities--no cyanosis or clubbing. No edema. Dermatologic--skin is dry Neurologic--cranial nerves II through XII grossly intact. Rheumatologic--normal range of motion. Psychiatric--nonresponsive Results & Data Results & Data ([facility]) Vital Signs (Past 12 Hours) Vital Signs Temp Pulse Pulse Resp BP BP Pulse Ox 07/14/21 01:00 62 20 113/68 96 07/13/21 23:34 57 L 20 127/67 98 07/13/21 22:30 66 18 96 07/13/21 21:32 97.7 F 87 20 114/71 95 Laboratory Results Laboratory Results WBC 4.49 K/uL (4.8-10.8) L 07/13/21 21:55 RBC 4.93 M/uL (4.2-5.4) 07/13/21 21:55 Hgb 14.7 g/dL (12.0-16.0) 07/13/21 21:55 Hct 40.4 % (37-47) 07/13/21 21:55 MCV 81.9 fL (80-100) 07/13/21 21:55 MCH 29.8 pg (25-34) 07/13/21 21:55 MCHC 36.4 g/dL (32-36) H 07/13/21 21:55 RDW Std Deviation 41.1 fL (36.4-46.3) 07/13/21 21:55 RDW Coeff of Vincenzo 13.7 % (11.5-14.5) 07/13/21 21:55 Plt Count 184 K/uL (130-400) 07/13/21 21:55 MPV 9.3 fL (7.4-10.4) 07/13/21 21:55 Immature Gran % (Auto) 0.2 % 07/13/21 21:55 Neut % (Auto) 68.1 % 07/13/21 21:55 Lymph % (Auto) 22.5 % 07/13/21 21:55 Cannon % (Auto) 7.8 % 07/13/21 21:55 Eos % (Auto) 0.7 % 07/13/21 21:55 Baso % (Auto) 0.7 % 07/13/21 21:55 Neut # (Auto) 3.06 K/uL (1.4-6.5) 07/13/21 21:55 Lymph # (Auto) 1.01 K/uL (1.2-3.4) L 07/13/21 21:55 Cannon # (Auto) 0.35 K/uL (0.11-0.59) 07/13/21 21:55 Eos # (Auto) 0.03 K/uL (0-0.5) 07/13/21 21:55 Baso # (Auto) 0.03 K/uL (0-0.2) 07/13/21 21:55 Immature Gran # (Auto) 0.01 K/uL (0.00-0.02) 07/13/21 21:55 PT 11.4 Seconds (9.0-12.0) 07/13/21 21:55 INR 1.1 (0.9-1.1) 07/13/21 21:55 APTT 22.5 Seconds (21.0-31.0) 07/13/21 21: PTT Ratio 0.9 07/13/21 21:55 Sodium 137 mmol/L (136-145) 07/13/21 21:55 Potassium 2.4 mmol/L (3.5-5.1) L* 07/13/21 21:55 Chloride 94 mmol/L (98-107) L 07/13/21 21:55 Carbon Dioxide 37 mmol/L (21-32) H 07/13/21 21:55 Anion Gap 7.0 (3-11) 07/13/21 21:55 BUN 21 mg/dl (7-18) H 07/13/21 21:55 Creatinine 0.93 mg/dl (0.6-1.2) 07/13/21 21:55 Est Cr Clr Drug Dosing Not Reportable 07/13/21 21:55 Est GFR ( Amer) 68.7 ml/min 07/13/21 21:55 Est GFR (Non-Af Amer) 59.3 ml/min 07/13/21 21:55 BUN/Creatinine Ratio 22.7 (10-20) H 07/13/21 21:55 Glucose 136 mg/dl (70-99) H 07/13/21 21:55 Lactate 1.7 mmol/L (0.4-2.0) 07/14/21 00:07 Calcium 10.9 mg/dl (8.5-10.1) H 07/13/21 21:55 Magnesium 1.6 mg/dl (1.8-2.4) L 07/13/21 21:55 Total Bilirubin 1.1 mg/dl (0.2-1) H 07/13/21 21:55 AST 42 U/L (15-37) H 07/13/21 21:55 ALT 46 U/L (12-78) 07/13/21 21:55 Alkaline Phosphatase 98 U/L (45-117) 07/13/21 21:55 Total Creatine Kinase 25 U/L (26-192) L 07/13/21 21:55 Troponin I < 0.015 ng/ml (0-0.045) 07/13/21 21:55 Total Protein 7.0 gm/dl (6.4-8.2) 07/13/21 21:55 Albumin 3.4 gm/dl (3.4-5.0) 07/13/21 21:55 Globulin 3.6 gm/dl (2.5-4.0) 07/13/21 21:55 Albumin/Globulin Ratio 0.9 (0.9-2) 07/13/21 21:55 Urine Color Dark Yellow 07/14/21 02:05 Urine Appearance Clear (Clear) 07/14/21 02:05 Urine pH 8.5 (4.5-7.5) H 07/14/21 02:05 Ur Specific [place] 1.026 (1.000-1.030) 07/14/21 02:05 Urine Protein Trace (Negative) H 07/14/21 02:05 Urine Glucose (UA) Negative (Negative) 07/14/21 02:05 Urine Ketones Trace (Negative) H 07/14/21 02:05 Urine Blood Negative (Negative) 07/14/21 02:05 Urine Nitrite Negative (Negative) 07/14/21 02:05 Urine Bilirubin Negative (Negative) 07/14/21 02:05 Urine Urobilinogen Negative (Negative) 07/14/21 02:05 Ur Leukocyte Esterase Negative (Negative) 07/14/21 02:05 Urine WBC (Auto) 1-5 /hpf (0-5) 07/14/21 02:05 Urine RBC (Auto) 0-4 /hpf (0-4) 07/14/21 02:05 U Hyaline Cast (Auto) 0 /lpf (0-5) 07/14/21 02:05 U Epithel Cells (Auto) 5-10 /lpf (0-5) H 07/14/21 02:05 Urine Bacteria (Auto) Negative (Negative) 07/14/21 02:05 COVID-19 Eval Order Covid19 at [facility] 07/13/21 23:27 SARS-CoV-2 (PCR) NEGATIVE (Negative) 07/13/21 23:27 Diagnostic Findings [facility] Patient: PEDRO AVENDAÑO (Female) : 41 Status: ER Date: 07/14/21 01:33 Room #: History: confusion with weakness, pt has dementia Slices: 66 Priors: Tech: Akhil Galarza @ [phone] Exams: CT HEAD Contrast: Accession Numbers: [id number] Referring Physician: REFERRED SELF Preliminary Findings Only See Final Report For Complete Findings CT HEAD: Encephalomalacia involving the right temporal and parietal lobe suggesting chronic right MCA territory infarct. Involutional and chronic small vessel ischemic changes. No ICH, mass-effect, or edema. No skull fracture. Mild mucosal thickening in the ethmoid air cells. Radiologist: Samuel Tripathi M.D. Study ready at 01:33 and initial results transmitted at 01:36 *This report constitutes a preliminary interpretation only. Non-acute findings felt to be unrelated to the clinical presentation may not be discussed in this report. The study will be interpreted and a final report will be generated by the local Radiologist the following shift. To reach the hospital radiology department call [phone]. If a discrepancy is found between the preliminary and final interpretations of this study, please notify us via our Client Portal at [email or web address].You can also fax this report with a description of the discrepancy, or include the final report, to our daytime fax number [phone].If faxing, please indicate the severity of discrepancy using one of the following categories: [ ] 1 - Agree/Informational [ ] 2 - Unlikely to Affect Management [ ] 3 - Possible Eventual Change of Management [ ] 4 - Probable Immediate Change of Management For all other patient related information, please fax us at [phone]. [id number] [facility] Patient: PEDRO AVENDAÑO (Female) : 41 Status: ER Date: 07/14/21 02:54 Room #: B9 History: weakness past couple days. confusion. hx of dementia. Slices: 206 Priors: cat scan head Tech: Reji Mccallum @ [phone] Exams: MRI HEAD Contrast: Accession Numbers: [id number] Referring Physician: REFERRED SELF Preliminary Findings Only See Final Report For Complete Findings MRI HEAD : Age-appropriate atrophy. No midline shift. No acute stroke. Right frontal and temporal encephalomalacia consistent with an old right middle cerebral artery distribution infarct. Non-specific white matter changes, most commonly seen with small vessel disease. No acute hemorrhage or abnormal extra-axial fluid collection. No paranasal sinus air-fluid level.. Radiologist: Ethan Gao M.D. Study ready at 02:55 and initial results transmitted at 03:20 *This report constitutes a preliminary interpretation only. Non-acute findings felt to be unrelated to the clinical presentation may not be discussed in this report. The study will be interpreted and a final report will be generated by the local Radiologist the following shift. To reach the hospital radiology department call [phone]. If a discrepancy is found between the preliminary and final interpretations of this study, please notify us via our Client Portal at [email or web address].You can also fax this report with a description of the discrepancy, or include the final report, to our daytime fax number [phone].If faxing, please indicate the severity of discrepancy using one of the following categories: [ ] 1 - Agree/Informational [ ] 2 - Unlikely to Affect Management [ ] 3 - Possible Eventual Change of Management [ ] 4 - Probable Immediate Change of Management For all other patient related information, please fax us at [phone]. [id number] Code Status & VTE Plan Code Status Full code VTE Prophylaxis Plan VTE Prophylaxis will be ordered: Yes PG Care Time/CCT Total # of Minutes Spent Total Time Spent with Patient: Total time spent is greater than 50% in coordination of care (as documented) at patient's floor/unit and/or counseling patient: Coding Level of Care Code INT OBSERVATION CARE 70M LVL 3 Diagnoses AMS (altered mental status) R41.82 Altered mental status type: unspecified Hypokalemia E87.6 Hypomagnesemia E83.42 Acute dehydration E86.0 Dementia F03.90 Cerebral infarction I63.9 (1) AMS (altered mental status) Altered mental status type: unspecified Qualified Code(s): R41.82 - Altered mental status, unspecified
[2021-07-14 02:43] LABS: Appearance Urine Clear (Clear); Bacteria Urine Automated Negative (Negative); Bilirubin Urine Negative (Negative); Blood Urine Negative (Negative); Cast Urine Automated 0 /lpf (0-5); Color Urine Dark Yellow; Glucose Urine UA Negative (Negative); Ketones Urine Trace (Negative); Leukocyte Esterase Urine Negative (Negative); Nitrite Urine Negative (Negative); RBC Urine Automated 0-4 /hpf (0-4); Specific Gravity Urine 1.026 (1.000-1.030); Urobilinogen Urine Negative (Negative); pH Urine 8.5 (4.5-7.5)
[2021-07-14 02:53] LABS: Protein Urine Trace (Negative)
--- NOTE | 2021-07-14 03:05 | Emergency Department Note ---
History of Present Illness General Chief complaint: Weakness Stated complaint: WEAKNESS, CONFUSION, CONSTIPATION Time Seen by Provider: 07/13/21 22:00 History of Present Illness This 75-year-old with dementia presents to the ER complaining of increased confusion per son Location: Generalized Quality: Confused Severity: Moderate Duration: Today Timing: Today Context: Son was concerned and brought her in Modifying factors: better with rest; worse with activity son states she is not really wanting to eat or drink at all. She is acting more confused. He denies vomiting, diarrhea, fevers, flulike illness. Patient herself has no complaints. Home Medications Medication Instructions Recorded Confirmed Type donepezil 10 mg tablet 10 mg PO HS 07/14/21 07/14/21 History famotidine 40 mg tablet 40 mg PO HS 07/14/21 07/14/21 History omeprazole 40 mg capsule,delayed 40 mg PO DAILYBB 07/14/21 07/14/21 History release Allergies Allergy/AdvReac Type Severity Reaction Status Date / Time No Known Allergies Allergy Unknown Verified 07/14/21 00:27 Past Med/Surg History Medical History (Updated 07/14/21 @ 03:08 by Carolyn Gross PA-C) Dementia Hiatal hernia Osteoarthritis Poor historian unaware of why she takes Pantoprazole. denies heartburn and abdominal pain. Alert and Oriented x3. 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 Beliefs That Will Affect Care: None marital status: Current Living Situation: Spouse current occupational status: retired current occupation: Retired teacher and director of student activities at [employer] Feels Safe at Home: Yes Assistive Devices: Glasses Review of Systems A total of 10 systems reviewed and were otherwise negative Physical Exam Vital Signs Vital Signs - 24 hr 07/13/21 21:32 07/13/21 22:30 07/13/21 23:34 Temperature 36.5 C Temperature Source Temporal Artery Scan Pulse Rate 87 66 Pulse Rate [Brachial] 57 L Pulse Rhythm Regular Regular Pulse Strength Normal Respiratory Rate 20 18 20 Blood Pressure 114/71 Blood Pressure [Left Arm] 127/67 Blood Pressure Mean 85 Blood Pressure Mean [Left Arm] 87 Blood Pressure Position Sitting Pulse Oximetry 95 96 98 Oxygen Delivery Method Room Air Room Air Sepsis Recent Fever Within 48 Hours No Sepsis New/Unexplained Change in Mental Status Yes Sepsis Action Taken by Nursing No Action Required 07/14/21 01:00 Temperature Temperature Source Pulse Rate Pulse Rate [Brachial] 62 Pulse Rhythm Pulse Strength Respiratory Rate 20 Blood Pressure Blood Pressure [Left Arm] 113/68 Blood Pressure Mean Blood Pressure Mean [Left Arm] 83 Blood Pressure Position Pulse Oximetry 96 Oxygen Delivery Method Room Air Sepsis Recent Fever Within 48 Hours Sepsis New/Unexplained Change in Mental Status Sepsis Action Taken by Nursing VITALS: Vitals are noted on the nurse's note and reviewed by myself. Vital signs stable. GENERAL: Elderly female following commands, in no acute distress, nondiaphoretic, well-developed well-nourished. SKIN: The skin was without rashes, erythema, edema, or bruising. There is no tenting of the skin. Capillary reflex less than 2 seconds. HEAD: Normocephalic atraumatic. EARS: External auditory canals clear, tympanic membranes pearly robertson without erythema or effusion bilaterally. EYES: Pupils equal round and reactive to light and accommodation. Conjunctivae without injection, sclerae without icterus. Extraocular movements intact. NOSE: Patent, turbinates without inflammation or discharge MOUTH: Mucous membranes dry pharynx without erythema or exudate. Uvula midline. Airway patent. Tongue does not deviate. NECK: Supple without nuchal rigidity. No lymphadenopathy. No thyromegaly. Cervical spine is nontender. No JVD. HEART: Regular rate and rhythm LUNGS: Clear to auscultation bilaterally without wheezes, rales or rhonchi. No retractions or accessory muscle use. ABDOMEN: Positive bowel sounds x 4. Normal tympanic percussion. Soft, nontender, without masses or organomegaly. Crawford sign negative. No guarding or rebound tenderness. No CVA tenderness MUSCULOSKELETAL: No muscle atrophy, erythema, or edema noted. 5 5 strength throughout. NEURO: Patient was alert and oriented to person but not to place and time. Normal sensation to light and sharp touch. No focal neurological deficits. Course Administered Medications Discontinued Medications Sodium Chloride (Nss 1000ml) 500 mls @ 999 mls/hr IV .Q31M ONE Stop: 07/13/21 22:37 Last Infusion: 07/13/21 22:46 Dose: 0 mls/hr Documented by: [id number] Admin: 07/13/21 22:15 Dose: 999 mls/hr Documented by: [id number] Magnesium Sulfate/Dextrose (Magnesium Sulfate / D5w) 1 gm in 100 mls @ 100 mls/hr IV Q1H KAYODE Stop: 07/14/21 00:54 Last Infusion: 07/14/21 01:54 Dose: 0 mls/hr Documented by: [id number] Admin: 07/14/21 00:49 Dose: 100 mls/hr Documented by: [id number] Infusion: 07/14/21 00:48 Dose: 0 mls/hr Documented by: [id number] Admin: 07/13/21 23:31 Dose: 100 mls/hr Documented by: [id number] Potassium Chloride (K Sergio / Wtr) 10 meq in 100 mls @ 100 mls/hr IV Q1H KAYODE Stop: 07/14/21 00:59 Last Infusion: 07/14/21 01:54 Dose: 0 mls/hr Documented by: [id number] Admin: 07/14/21 00:49 Dose: 100 mls/hr Documented by: [id number] Infusion: 07/14/21 00:48 Dose: 0 mls/hr Documented by: [id number] Admin: 07/13/21 23:26 Dose: 100 mls/hr Documented by: [id number] Potassium Chloride (Potassium Chloride 20 Meq/15 Ml Udc) 40 meq PO NOW STA Stop: 07/13/21 22:55 Last Admin: 07/13/21 23:27 Dose: 40 meq Documented by: [id number] Medical Decision Making Medical Records Attestation: I reviewed the patient's medical records. Home Medications Current Medication List: was personally reviewed by me Laboratory Data Attestation: I reviewed the patient's lab results. Result diagrams: 07/13/21 21:55 07/13/21 21:55 Lab Results 0907/13/21 07/13/21 Range/Units 21:55 21:55 21:55 WBC 4.49 L (4.8-10.8) K/uL RBC 4.93 (4.2-5.4) M/uL Hgb 14.7 (12.0-16.0) g/dL Hct 40.4 (37-47) % MCV 81.9 (80-100) fL MCH 29.8 (25-34) pg MCHC 36.4 H (32-36) g/dL RDW Std Deviation 41.1 (36.4-46.3) fL RDW Coeff of Vincenzo 13.7 (11.5-14.5) % Plt Count 184 (130-400) K/uL MPV 9.3 (7.4-10.4) fL Immature Gran % (Auto) 0.2 % Neut % (Auto) 68.1 % Lymph % (Auto) 22.5 % [place] % (Auto) 7.8 % Eos % (Auto) 0.7 % Baso % (Auto) 0.7 % Neut # (Auto) 3.06 (1.4-6.5) K/uL Lymph # (Auto) 1.01 L (1.2-3.4) K/uL [place] # (Auto) 0.35 (0.11-0.59) K/uL Eos # (Auto) 0.03 (0-0.5) K/uL Baso # (Auto) 0.03 (0-0.2) K/uL Immature Gran # (Auto) 0.01 (0.00-0.02) K/uL PT 11.4 (9.0-12.0) Seconds INR 1.1 (0.9-1.1) APTT 22.5 (21.0-31.0) Seconds PTT Ratio 0.9 Sodium 137 (136-145) mmol/L Potassium 2.4 L* (3.5-5.1) mmol/L Chloride 94 L (98-107) mmol/L Carbon Dioxide 37 H (21-32) mmol/L Anion Gap 7.0 (3-11) BUN 21 H (7-18) mg/dl Creatinine 0.93 (0.6-1.2) mg/dl Est Cr Clr Drug Dosing Not Reportable Est GFR ( Amer) 68.7 ml/min Est GFR (Non-Af Amer) 59.3 ml/min BUN/Creatinine Ratio 22.7 H (10-20) Glucose 136 H (70-99) mg/dl Lactate (0.4-2.0) mmol/L Calcium 10.9 H (8.5-10.1) mg/dl Magnesium 1.6 L (1.8-2.4) mg/dl Total Bilirubin 1.1 H (0.2-1) mg/dl AST 42 H (15-37) U/L ALT 46 (12-78) U/L Alkaline Phosphatase 98 (45-117) U/L Total Creatine Kinase 25 L (26-192) U/L Troponin I < 0.015 (0-0.045) ng/ml Total Protein 7.0 (6.4-8.2) gm/dl Albumin 3.4 (3.4-5.0) gm/dl Globulin 3.6 (2.5-4.0) gm/dl Albumin/Globulin Ratio 0.9 (0.9-2) COVID-19 Eval Order SARS-CoV-2 (PCR) (Negative) 07/13/21 07/13/21 07/14/21 Range/Units 23:27 23:27 00:07 WBC (4.8-10.8) K/uL RBC (4.2-5.4) M/uL Hgb (12.0-16.0) g/dL Hct (37-47) % MCV (80-100) fL MCH (25-34) pg MCHC (32-36) g/dL RDW Std Deviation (36.4-46.3) fL RDW Coeff of Vincenzo (11.5-14.5) % Plt Count (130-400) K/uL MPV (7.4-10.4) fL Immature Gran % (Auto) % Neut % (Auto) % Lymph % (Auto) % [place] % (Auto) % Eos % (Auto) % Baso % (Auto) % Neut # (Auto) (1.4-6.5) K/uL Lymph # (Auto) (1.2-3.4) K/uL [place] # (Auto) (0.11-0.59) K/uL Eos # (Auto) (0-0.5) K/uL Baso # (Auto) (0-0.2) K/uL Immature Gran # (Auto) (0.00-0.02) K/uL PT (9.0-12.0) Seconds INR (0.9-1.1) APTT (21.0-31.0) Seconds PTT Ratio Sodium (136-145) mmol/L Potassium (3.5-5.1) mmol/L Chloride (98-107) mmol/L Carbon Dioxide (21-32) mmol/L Anion Gap (3-11) BUN (7-18) mg/dl Creatinine (0.6-1.2) mg/dl Est Cr Clr Drug Dosing Est GFR ( Amer) ml/min Est GFR (Non-Af Amer) ml/min BUN/Creatinine Ratio (10-20) Glucose (70-99) mg/dl Lactate 1.7 (0.4-2.0) mmol/L Calcium (8.5-10.1) mg/dl Magnesium (1.8-2.4) mg/dl Total Bilirubin (0.2-1) mg/dl AST (15-37) U/L ALT (12-78) U/L Alkaline Phosphatase (45-117) U/L Total Creatine Kinase (26-192) U/L Troponin I (0-0.045) ng/ml Total Protein (6.4-8.2) gm/dl Albumin (3.4-5.0) gm/dl Globulin (2.5-4.0) gm/dl Albumin/Globulin Ratio (0.9-2) COVID-19 Eval Order Covid19 at [facility] SARS-CoV-2 (PCR) NEGATIVE (Negative) Imaging Data Attestation: I personally reviewed and interpreted this imaging study as follows: MDM Narrative Prior records/ancillary studies reviewed and summarized above. Nursing notes reviewed. Additional history obtained from family. The patient's history was concerning for increased confusion. Differential diagnosis: Etiologies such as metabolic, infection, hypo/hyperglycemia, electrolyte abnormalities, cardiac sources, intracerebral event, toxicologic, neurologic, as well as others were entertained. Physical examination: As above. ER treatment provided: IV Lock An order was placed for continuous cardiac monitoring. The monitor shows a rate of 50-100 with a sinus rhythm. IV fluids, magnesium, potassium On reassessment the patient felt better. Diagnostics interpretation by me: #1 ECG: Ordered for confusion EKG: Normal sinus, T wave inversion in 1 and aVL, no other ST changes, rate of 60. Impression normal sinus rhythm with T wave inversions in the anterior leads interpreted by myself. I think arrhythmia is unlikely. EKG shows normal sinus rhythm with no interval abnormalities such as QT prolongation or WPW. There are no findings to suggest Brugada syndrome. Cardiac monitoring in the emergency department reveals no tachycardic or bradycardic dysrhythmia. Hypertrophic cardiomyopathy was considered but there are no clear historical elements pointing toward this. EKG is not suggestive. The QRS voltage is not extremely large and there are no suggestive Q waves. #2 EKG ordered for abnormal EKG EKG: Normal sinus, persistent T wave inversions in lead I and aVL, no other changes, impression normal sinus and with T wave inversions interpreted by myself unchanged from the first EKG I think arrhythmia is unlikely. EKG shows normal sinus rhythm with no interval abnormalities such as QT prolongation or WPW. There are no findings to suggest Brugada syndrome. Cardiac monitoring in the emergency department reveals no tachycardic or bradycardic dysrhythmia. Hypertrophic cardiomyopathy was considered but there are no clear historical elements pointing toward this. EKG is not suggestive. The QRS voltage is not extremely large and there are no suggestive Q waves. The labs revealed hypokalemia, hypomagnesia Imaging studies: CT HEAD: Encephalomalacia involving the right temporal and parietal lobe suggesting clerk rating [place] right MCA territory infarct. Involutional and chronic small vessel ischemic changes. No ICH, mass-effect, or edema. No skull fracture. Mild mucosal thickening in the ethmoid air cells. Radiologist: Samuel Tripathi M.D. Chest x-ray with no acute consolidation, pneumothorax or free air per my trib ulation Consultation: A consultation was placed with the hospitalist. The case was discussed and d iagnostics were reviewed. The patient was evaluated in the ER for further treatment. Exam and history seem consistent with dehydration and electrolyte disturbances with increased confusion. MRI was ordered. Electrolytes replaced as above. Urine has not been collected at time of admission. Patient was admitted to the medical service. Family was agreeable. By the evaluation outlined above emergent etiologies such as cardiac sources, intracerebral event, toxologic, abnormalities blood glucose, metabolic, as well as others were deemed relatively unlikely. The pt/family informed about the findings as listed above. All questions were answered and pleased with the treatment. The chart was completed utilizing [employer] Speech voice recognition software. Grammatical errors, random word insertions, pronoun errors, and incomplete sentences are an occassional consequence of this system due to software limitations, ambient noise, and hardware issues. Any formal questions or concerns about the content, text, or information contained within the body of this dictation should be directly addressed to the physician speech pathologist assistant for clarification. Impression & Plan AMS (altered mental status), Hypokalemia, Hypomagnesemia, Acute dehydration Discharge Plan Visit Data Chief Complaint: Weakness Stated Complaint: WEAKNESS, CONFUSION, CONSTIPATION ED Provider: Aramis Daniels ED Midlevel Provider: Carolyn Gross Discharge Problem: AMS (altered mental status), Hypokalemia, Hypomagnesemia, Acute dehydration Patient Disposition: Admitted As Inpatient Condition: Fair Discharge Instructions Interventions: ED Discharge Assessment Last Done: 07/14/21 02:32
[2021-07-14] MEDS ORDERED: ONDANSETRON INJ 2 MG/ML 2 ML VIAL IV PRN (03:54)
[2021-07-14] MEDS ORDERED: MAGNESIUM SULFATE / D5W 1 GM/100 ML BAG IV ONE (03:54)
[2021-07-14] MEDS: NSS + 20MEQ KCL 20 MEQ/1,000 ML BAG IV SCH ×2 (04:11→14:20)
[2021-07-14 06:59] LABS: Alanine Aminotransferase 33 U/L (12-78); Albumin Level 2.8 gm/dl (3.4-5.0); Alkaline Phosphatase 77 U/L (45-117); Aspartate Aminotransferase 32 U/L (15-37); BUN Creatinine Ratio 23.8 (10-20); Bilirubin,Total 1.2 mg/dl (0.2-1); Blood Urea Nitrogen 18 mg/dl (7-18); Calcium 8.8 mg/dl (8.5-10.1); Carbon Dioxide 34 mmol/L (21-32); Chloride 97 mmol/L (98-107); Est GFR (African American) 90.6 ml/min; Est GFR (Non-African American) 78.1 ml/min; Globulin 2.9 gm/dl (2.5-4.0); Glucose 151 mg/dl (70-99); Magnesium 3.2 mg/dl (1.8-2.4); Potassium 2.7 mmol/L (3.5-5.1); Sodium 135 mmol/L (136-145); Total Protein 5.7 gm/dl (6.4-8.2)
--- NOTE | 2021-07-14 07:11 | CT Scan Report ---
CT SCAN OF THE BRAIN WITHOUT IV CONTRAST CLINICAL HISTORY: Change in mental status. COMPARISON STUDY: No priors. TECHNIQUE: Unenhanced axial CT scan of the brain is performed from the vertex to the skull base. A do se lowering technique was utilized adhering to the principles of ALARA. CT DOSE: 614.27 mGy.cm FINDINGS: Brain parenchyma: There are age-related involutional changes noting mild patchy subcortical and gabe ventricular microangiopathic change. Right temporoparietal encephalomalacia is consistent with a maria d te infarct. There is no hemorrhage, mass effect, or evidence of acute territorial ischemia by CT crit eria. Rahman-white matter differentiation is preserved. No extra-axial fluid collection is seen. Ventricles, sulci, cisterns: Prominent secondary to involutional change. Intracranial vasculature: There is atherosclerotic calcification of the cavernous carotid and vertebr al arteries. Calvarium: Unremarkable. Sinuses and mastoids: There is mucosal thickening within the left ethmoid sinuses. The remaining visu alized paranasal sinuses are clear. The mastoid air cells are well pneumatized. Orbits: The bony orbits are grossly intact. There are bilateral ocular lens implants. IMPRESSION: There is no hemorrhage, mass effect, or evidence of acute territorial ischemia by CT crit eria. ACT 112: Negative or not required by law. Electronically signed by: Akhil Chapman M.D. 07/14/2021 7:09 AM
--- NOTE | 2021-07-14 08:13 | Magnetic Resonance Report ---
MR brain wo con INDICATION: MN ^ams TECHNIQUE: Multiplanar and multisequence MR images of the brain were obtained without intravenous con trast. Comparison: None available at the time of this dictation. FINDINGS: No abnormal restricted diffusion is identified. Foci of T2 and FLAIR hyperintensity are noted in the paraventricular areas consistent with chronic small vessel ischemic disease. Encephalomalacia in the right parietal lobe may represent an old stroke. There is no evidence of acute intraparenchymal hemor rhage. No extra axial fluid collections are seen. There are no masses, mass effect, or midline shift. Ex vacuo ventriculomegaly and sulcal enlargement is noted compatible with diffuse encephalomalacia. The corpus callosum, pituitary gland, and cerebellar tonsils appear grossly unremarkable. Flow voids of the major intracranial arterial vessels are identified. The imaged portions of the para nasal sinuses, mastoid air cells, and orbits are unremarkable. IMPRESSION: Chronic volume loss and age related white matter changes without evidence of acute abnormality. ACT 112: Negative or not required by law. Electronically signed by: Tristin Portillo M.D. 07/14/2021 8:11 AM
--- NOTE | 2021-07-14 08:28 | XRay Report ---
XR chest 1V portable HISTORY: SEPSIS COMPARISON: Chest 07/24/2020. FINDINGS: Moderate S-shaped scoliosis of the thoracolumbar spine. The heart remains mildly enlarged. There are low lung volumes. No focal lung consolidations to suggest pneumonia. No evidence for pulmon zuri edema. No pleural fusions. No pneumothorax. IMPRESSION: Scoliosis. No acute process within the chest. ACT 112: Negative or not required by law. Electronically signed by: Imer Miranda M.D. 07/14/2021 8:26 AM
[2021-07-14] MEDS: POTASSIUM CHLORIDE 20 MEQ/15 ML UDC PO SCH ×3 (09:19→21:38)
[2021-07-14 15:57] LABS: BUN Creatinine Ratio 27.1 (10-20); Calcium 8.5 mg/dl (8.5-10.1); Creatinine Clr Calc Pharmacy 58.3 ml/min; Est GFR (African American) 101.3 ml/min; Est GFR (Non-African American) 87.4 ml/min; Potassium 2.9 mmol/L (3.5-5.1)
--- NOTE | 2021-07-14 16:10 | Communication Note ---
Date of Service: July 14, 2021 Bridge note Patient was seen at the bedside. She is in no acute distress but pleasantly confused. Think she is at a cousin's reunion, denies any pain in all symptoms. Talk to patient's son Audie by phone at [phone]. Reports that Melonie has dementia at baseline and is generally poorly oriented, and tends to be much wor se at the hospital. Reports that thinking she is at a cousin's reunion is very common when she is in the hospital. She lives with her at home, her does not have dementia although does have hearing difficulties which can impair phone conversations. Reports that they have intermittently at home health at home, but have also intermittently refused the services after a short period of time. Would like to have an update tomorrow around noon, Audie will go to their house so that he can help facilitate a conversation with the patient's who is hard of hearing. He also requests reinforcement that home health would be helpful for eMlonie, and also is open to potential rehab if needed but would like recommendations on placement. Discussed that she is still acutely ill, but doing well without signs of bacterial infection on her lab work at this time and is having her fluids/electrolytes repleted, but these may normalize as early as tomorrow and she will work with physical therapy who will make additional recommendations. No additional questions, patient appreciative of call and again will be available at noon tomorrow at the above number. General: Awakens easily to voice, oriented to name only. HEENT: Atraumatic, normocephalic. Visual acuity and hearing grossly intact. Pulm: CTAB A&P. -wheezes, -rales, -rhonchi. Symmetrical chest rise. No increase work of breathing. No respiratory distress. Cardiac: RRR, -mrg. Radial pulses intact and symmetrical. Abdominal: Nontender, nondistended, soft. BS present. Extremities: Warm, dry A/P Patient presents with severe hypokalemia with poor p.o. intake and intermittent diarrhea, continue infectious work-up with C. difficile pending, no signs of UTI/pulmonary infection at this time. Continue fluid repletion, electrolyte rechecks. Baseline mental status poor with progressive chronic dementia, case management consulted. Patient lives with her at home who is hard of hearing, son Audie is available at [phone] as well to facilitate communication. Altered mental status CT head, MRI brain with no acute findings. Old MCA territory of the right temporal/parietal lobe appreciated without acute/subacute findings Patient with history of progressive dementia, worsened delirium in hospital (commonly believing she is at a cousin's reading) Several days of poor oral intake, son reports intermittent diarrhea about every 6 weeks Unclear baseline, continue metabolic/infectious evaluation Hypokalemia Potassium gradually uptrending, 2.9 at most recent check Continue oral/IV repletion Maintenance fluids NSS plus KCl 2125 cc/h Magnesium repleted BMP daily Acute volume depletion Clinically dry S/p 500 cc NSS +500 cc from riders in ER Continue crystalloid as above Encourage p.o., creatinine 0.61, BUN 17 DVT prophylaxis: Lovenox Diet: Regular Disposition: Medical/surgical, currently ER hold
--- NOTE | 2021-07-14 22:26 | Electrocardiogram Report ---
Test Reason : Blood Pressure : / mmHG Vent. Rate : 060 BPM Atrial Rate : 060 BPM P-R Int : 152 ms QRS Dur : 082 ms QT Int : 400 ms P-R-T Axes : 110 -25 054 degrees QTc Int : 400 ms Normal sinus rhythm Left ventricular hypertrophy with repolarization abnormality Abnormal ECG When compared with ECG of 24-JUL-2020 20:49, CA interval has decreased QRS axis Shifted left QT has shortened ST/T wave abnormality is now present in lateral leads Confirmed by Yaakov Sung ([id number]) on 07/14/2021 10:26:22 PM Referred By: REFERRED SELF Confirmed By:Yaakov Sung
--- NOTE | 2021-07-14 22:29 | Electrocardiogram Report ---
Test Reason : Blood Pressure : / mmHG Vent. Rate : 061 BPM Atrial Rate : 061 BPM P-R Int : 182 ms QRS Dur : 082 ms QT Int : 422 ms P-R-T Axes : 030 -24 032 degrees QTc Int : 424 ms Poor data quality, interpretation may be adversely affected Normal sinus rhythm Left ventricular hypertrophy with repolarization abnormality Abnormal ECG When compared with ECG of 13-JUL-2021 23:15, No significant change was found Confirmed by Yaakov Sung ([id number]) on 07/14/2021 10:28:53 PM Referred By: REFERRED SELF Confirmed By:Yaakov Sung
[2021-07-14 22:48] LABS: BUN Creatinine Ratio 26.1 (10-20); Calcium 8.5 mg/dl (8.5-10.1); Creatinine Clr Calc Pharmacy 61.3 ml/min; Est GFR (Non-African American) 88.9 ml/min; Potassium 2.9 mmol/L (3.5-5.1)
[2021-07-15] MEDS ORDERED: POTASSIUM CHLORIDE 20 MEQ/15 ML UDC PO ONE (00:15)
[2021-07-15] MEDS: POTASSIUM CHLORIDE / WTR 10 MEQ/100 ML PLCT IV SCH ×3 (00:29→02:27)
[2021-07-15] MEDS: NSS + 20MEQ KCL 20 MEQ/1,000 ML BAG IV SCH ×2 (02:48→11:40)
[2021-07-15 06:14] LABS: Basophils # (auto) 0.01 K/uL (0-0.2); Basophils % (auto) 0.1 %; Eosinophils # (auto) 0.11 K/uL (0-0.5); Eosinophils % (auto) 1.6 %; Hematocrit (blood only) 31.8 % (37-47); Hemoglobin 11.4 g/dL (12.0-16.0); Immature Granulocytes # (auto) 0.01 K/uL (0.00-0.02); Immature Granulocytes % (auto) 0.1 %; Mean Corpuscular Hemoglobin 29.1 pg (25-34); Mean Corpuscular Hgb Conc 35.8 g/dL (32-36); Mean Corpuscular Volume 81.1 fL (80-100); Mean Platelet Volume 9.3 fL (7.4-10.4); Monocytes # (auto) 0.55 K/uL (0.11-0.59); Monocytes % (auto) 8.2 %; Platelet Count 136 K/uL (130-400); RDW Coefficient of Variation 14.2 % (11.5-14.5); RDW Standard Deviation 42.4 fL (36.4-46.3); Red Blood Count 3.92 M/uL (4.2-5.4); White Blood Count 6.68 K/uL (4.8-10.8)
[2021-07-15 06:42] LABS: Albumin Globulin Ratio 0.9 (0.9-2); Albumin Level 2.4 gm/dl (3.4-5.0); Bilirubin,Total 0.9 mg/dl (0.2-1); Calcium 7.9 mg/dl (8.5-10.1); Creatinine Clr Calc Pharmacy 69.7 ml/min; Est GFR (African American) 107.5 ml/min; Est GFR (Non-African American) 92.8 ml/min; Globulin 2.7 gm/dl (2.5-4.0); Magnesium 1.8 mg/dl (1.8-2.4); Potassium 3.5 mmol/L (3.5-5.1); Total Protein 5.1 gm/dl (6.4-8.2)
[2021-07-15] MEDS ORDERED: ATORVASTATIN 40 MG TAB PO SCH (13:00)
--- NOTE | 2021-07-15 15:54 | Discharge Summary ---
Date of Service July 15, 2021 Admission HPI Per Admitting Provider The patient is unable to contribute to her HPI or review of systems due to present confusion state. Her son reports that she has not been wanting to eat or drink at all, has been acting more confused, but the patient herself has no complaints. The son reports that she has not had any signs of chest pain, shortness of breath, vomiting, diarrhea, fevers or chills. Admission Exam Per Admitting Provider The patient is awake, nonresponsive, normocephalic and atraumatic, lying in bed and in no acute distress. HEENT--PERRL, EOMI, mucous membranes and oropharynx dry. Neck--supple. No JVD. No bruits. Thyroid normal, trachea midline, no adenopathy. Heart--normal S1 and S2. No murmurs, rubs or gallops. Lungs--clear bilaterally, no respiratory distress, no accessory muscle use. Abdomen--normal bowel sounds and soft. Nontender. Nondistended, no hernias or masses, no organomegaly. Extremities--no cyanosis or clubbing. No edema. Dermatologic--skin is dry Neurologic--cranial nerves II through XII grossly intact. Rheumatologic--normal range of motion. Psychiatric--nonresponsive Principal Diagnosis Hypokalemia Volume depletion Gastroenteritis, self-limited Discharge Exam General: Oriented to name only. No acute distress. Pleasant, cooperative. Walking back from bathroom with no difficulty. HEENT: Atraumatic, normocephalic. Visual acuity and hearing grossly intact. Pupils equal and reactive to light and accommodation. Mucous membranes moist. Pulm: CTAB A&P. -wheezes, -rales, -rhonchi. Symmetrical chest rise. No increase work of breathing. No respiratory distress. Cardiac: RRR, -mrg. Radial pulses intact and symmetrical. Abdominal: Nontender, nondistended, soft. BS present. Extremities: Warm, dry. Moving all extremities equally. Radial pulse and PT pulse intact without asymmetry. Discharge Data Allergies Allergy/AdvReac Type Severity Reaction Status Date / Time No Known Allergies Allergy Unknown Verified 07/14/21 00:27 Consultations 07/14/21 01:12 ED Decision to Admit Stat Ordered Studies 07/13/21 22:07 CT head/brain wo con Urgent 10/01/21 01:37 MR brain wo con Stat Hospital Course (1) AMS (altered mental status): Melonie is a 75-year-old female with a history of progressive chronic cognitive decline/dementia who presented with several days of diarrhea and who was admitted for volume depletion and hypokalemia. Her diarrhea improved overnight and she was having formed bowel movements day of discharge. Her electrolytes normalized with repletion as noted below. To do as outpatient: 1. Routine follow-up with PCP 2. LFT check in approximately 2 weeks, atorvastatin started during admission 3. Follow-up with home health services Altered mental status, baseline chronic dementia CT head, MRI brain with no acute findings. Old MCA territory of the right temporal/parietal lobe appreciated without acute/subacute findings Patient with history of progressive dementia, worsened delirium in hospital (commonly believing she is at a cousin's reunion) Several days of poor oral intake, son reports intermittent diarrhea about every 6 weeks Progressive dementia at baseline, discussed extensively with patient's son and . Acutely worsened 2/2 volume depletion Improved to baseline rapidly with IV fluids Patient at baseline at time of discharge, recommend continuing donepezil (2) Hypokalemia: Patient with less than 1 week of diarrhea, on chronically poor intake Calcium 2.4 on admission IV and p.o. potassium chloride repletion ordered patient normalized 10/2 BC normalized as below Patient tolerating p.o. diet well, no diarrhea with small formed bowel movement day of discharge (3) Hypomagnesemia: Repleted in ER and normalized (4) Acute dehydration: - Patient received 1 L IV fluids and multiple potassium riders in the ER and on transfer, improved clinically No DIAZ, creatinine was less than 1 at admission and at discharge. BUN/creatinine ratio greater than 20 on admission, normalized by time of discharge -Clinically dry on exam on admit, clinically euvolemic at discharge (5) Dementia: Chronic underlying dementia, age-related Discussed 24-hour home care versus ventricular units with family Family expressed understanding, patient currently lives with her and has home health services Continue donepezil (6) Cerebral infarction: CT head, MRI brain performed. No acute intracranial abnormality but evidence of old right MCA infarct No acute neurologic deficits, no focal neurologic deficits during admission although exam limited by dementia Aspirin 81 mg and atorvastatin 40 mg started and continued on discharge. LDL greater than 100 during admission. Total Time Total Time Spent Total Time Spent (In Minutes): Total time spent preparing discharge including direct clinical care, review of labs and images, and documentation 35 minutes. Discharge Plan Discharge Items Patient Disposition: Home - Home Health Services Reason For Visit: MS CHANGE, HYPOK, HYPOMAG, CHRONIC RMCA INFARCT Discharge Diagnosis: Hypokalemia Volume depletion Gastroenteritis Activity: Per Instructions section Non-emergency contact: Primary Care Provider Call non-emergency contact if: you have any medication questions, your symptoms worsen, your pain is not controlled and your pain is concerning for you Follow-up/Referrals: Abiola Gill [Primary Care Provider] - Diet: Regular Addtl Attending Provider Instructions: You were seen in the hospital for acute confusion and were admitted for dehydration and a very low potassium. Your potassium and dehydration was treated with IV fluids. You did not show signs of a bacterial infection or urinary tract infection, no antibiotics were indicated. You clinically improved while in the hospital. Imaging of your head and brain did not show any acute stroke or acute intracranial pathology, but there was evidence of a old stroke. You have been placed on aspirin and a cholesterol medicine as noted below to help prevent future strokes, no other medication changes have been made. You were ambulating well and were recommended for discharge home with home health services. Due to your prior stroke noted on imaging you have been started on a daily low- dose aspirin. Please take aspirin 81 mg daily. Due to your prior stroke noted on imaging and high LDL (bad cholesterol) of 131 you have been started on a cholesterol medication, atorvastatin. This medication can also help prevent plaques from breaking off arterial gurrola at moderate to high doses. Please take atorvastatin 40 mg by mouth daily. Your primary care provider should perform blood work to check LFTs in 1 to 2 weeks to make sure that you tolerate this medicine well. If you develop any side effects including body aches, please stop taking this medication and discuss it further with your primary care physician. A followup appointment is being scheduled for you with Dr. Gill. You should be seen seen within 1-2 weeks. You should receive a call to confirm this appointment. If you do not receive a call within 48 hours to confirm this appointment, or need to change this appointment, please call the provider's office at [phone]. If you develop any new or worsening symptoms including fever, chills, sweats, chest pain, chest pressure, difficulty breathing, uncontrolled nausea/vomiting, rash, wheezing, passing out or nearly passing out, bleeding, black/bloody bowel movements, or other new or concerning symptoms please call your primary care physician at [phone], or call 911 for re-evaluation in the emergency department if you are very concerned. Pending Studies at Discharge: No Stand-Alone Forms: My [facility], Smoking Cessation Medications and DC Order Prescriptions: New atorvastatin 40 mg Tablet 40 mg PO QAM 30 Days Qty: 30 RF: 0 aspirin 81 mg Tablet,Delayed Release (Dr/Ec) 81 mg PO QAM 30 Days Qty: 30 RF: 0 Continued donepezil 10 mg tablet 10 mg PO HS RF: 0 famotidine 40 mg tablet 40 mg PO HS RF: 0 omeprazole 40 mg capsule,delayed release(DR/EC) 40 mg PO DAILYBB RF: 0 Discharge Orders: Discharge Order (Routine); Ordered 07/15/21 Ordered By: Hiram Alvarez Admission Data Admit Date/Time: 07/14/21 01:57 Attending Provider: Hiram Alvarez Admit Provider: Manuel Hills Primary Care Provider: Abiola Gill Other Providers: Manuel Hills ; [facility] Coding Level of Care Code D/C DAY MANAGEMENT >30 MINS Diagnoses AMS (altered mental status) R41.82 Altered mental status type: unspecified Hypokalemia E87.6 Hypomagnesemia E83.42 Acute dehydration E86.0 Dementia F03.90 Cerebral infarction I63.9
[2021-07-15] MEDS ORDERED: DONEPEZIL HCL 10 MG TAB PO SCH (21:00)
[2021-07-15] MEDS ORDERED: FAMOTIDINE 40 MG TABLET PO SCH (21:00)
[2021-07-16] MEDS ORDERED: PANTOprazole 40 MG TAB PO SCH (06:30)
[2021-07-16] MEDS ORDERED: ASPIRIN 81 MG ECTAB PO SCH (09:00)
== END 2021-07-15 16:40 | disposition home health service (06) | DRG 641 ==
LOC: ED 21:25 → SUATTDRO 07-14 01:57 → EDINP 07-14 01:57 → 2S 07-14 02:32 → 2W 07-15 12:30

== ENCOUNTER 2022-07-15 19:18 | Inpatient (IN) ==
[2022-07-15] MEDS ORDERED: SODIUM CHLORIDE 0.9% 1000ML 1,000 ML IV SCH (19:45)
[2022-07-15] MEDS ORDERED: SODIUM CHLORIDE 0.9% 500 ML IV SCH (19:45)
--- NOTE | 2022-07-15 19:52 | XRay Report ---
XR chest 1V portable HISTORY: 76 years-old Female weakness acute weakness COMPARISON: 07/13/2021 TECHNIQUE: Portable AP view of the chest FINDINGS: Cardiac silhouette is enlarged. Atherosclerosis of the thoracic aorta. No pneumothorax. Chronic blunt ing of the lateral costophrenic angles. No pneumothorax, large pleural effusion or overt pulmonary ed dg. No airspace consolidation typical for pneumonia. Degenerative changes of the shoulders and spine with sigmoidal thoracolumbar scoliosis. IMPRESSION: No acute process. ACT 112: Negative or not required by law. The above report was generated using voice recognition software. It may contain grammatical, syntax o r spelling errors. Electronically signed by: Shaquille Lundy M.D. 07/15/2022 7:50 PM
[2022-07-15 19:53] LABS: Basophils # (auto) 0.09 K/uL (0-0.2); Basophils % (auto) 1.1 %; Eosinophils # (auto) 0.11 K/uL (0-0.50); Eosinophils % (auto) 1.3 %; Hematocrit (blood only) 46.2 % (34.1-44.9); Hemoglobin 15.8 g/dl (12.0-16.0); Immature Granulocytes # (auto) 0.02 K/uL (0.00-0.02); Immature Granulocytes % (auto) 0.2 %; Lymphocytes # (auto) 1.19 K/uL (1.2-3.4); Lymphocytes % (auto) 14.6 %; Mean Corpuscular Hemoglobin 30.5 pg (25.0-34.0); Mean Corpuscular Hgb Conc 34.2 g/dL (32.0-36.0); Mean Corpuscular Volume 89.2 fL (80.0-100.0); Mean Platelet Volume 10.1 fL (9.4-12.3); Monocytes # (auto) 0.52 K/uL (0.24-0.82); Monocytes % (auto) 6.4 %; Neutrophils # (auto) 6.22 K/uL (1.4-6.5); Neutrophils % (auto) 76.4 %; Platelet Count 217 K/uL (130-400); RDW Coefficient of Variation 13.2 % (11.5-14.5); RDW Standard Deviation 42.8 fL (36.4-46.3); Red Blood Count 5.18 M/uL (3.93-5.22); White Blood Count 8.15 K/ul (4.8-10.8)
--- NOTE | 2022-07-15 20:17 | Emergency Department Note ---
Impression & Plan Generalized weakness, Adult failure to thrive ED Provider Note INFORMANT: Patient ED PROVIDER(S): Brando Graham MD CHIEF COMPLAINT: Weakness PLAN: Disposition: Admitted Condition: Good Outpatient prescription management: none Referral: None MEDICAL DECISION MAKING: She had general weakness. Family was concerned that she has had a progressive decline. Patient had a work-up initiated. ECG did not show any significant acute pathology. Urinalysis was concerning for infection. Patient was given IV Rocephin. Her CBC and chemistry panel did show some mild dehydration. Remainde r of her blood work was unremarkable. Family was concerned that she has had this progressive decline. She has been admitted before for the similar issues. In light of the UTI and progressive decline this seems reasonable. Consultation was made with Dr. Manuel Hills of the [facility] service. Patient was evaluated in the ER for further management. Triage Nursing notes reviewed and agree them. Vital Signs: reviewed and remarkable for no significant abnormalities Differential diagnosis: Infection, dehydration, metabolic abnormality, hypo/hyperglycemia, electrolyte disturbance, anemia, hypoxia, cardiac sources, intracerebral event, toxicologic, neurologic, as well as other pathologies. Diagnostics interpreted by me: ECG: Twelve-lead ECG reveals a normal sinus rhythm at 92 bpm. Left axis deviation. Inferior Q waves present. Anterolateral Q waves present. Prolonged QT interval. No ST elevation. No PVCs or PACs. Cardiac Monitoring: Cardiac monitoring ordered by me: The patient was placed on continuous cardiac monitoring and observed. It revealed a normal sinus rhythm at 68 beats per minute without ectopy or evidence of dysrhythmia. Imaging studies: Head CT shows old infarct but no acute pathology per stat rad. HPI: The patient is a 76year old female who presents to the Emergency Room with complaints of weakness. This started to worsen over the last 2 weeks and is more noticeable per the patient's son. Patient lives with her elderly and sons check on her frequently. She does have some mild dementia and they think that that is worsening. Son notes that patient has had similar decline this year and did spend about 4 to 5 days in the hospital.. The patient also notes the following associated symptoms, chronic nasal drainage. The patient has been prescribed no relieving factors. Current pain is rated as 0/10. Pt denies LOC, headache, fevers, chills, diaphoresis, visual changes, neck pain, chest pain, breathing difficulties, nausea, vomiting, abdominal pain, back pain, melena, hematochezia, urinary symptoms, numbness, lymphadenopathy, rash, or other complaints. ROS: See above HPI for pertinent positives & negatives. A total of 10 systems reviewed and were otherwise negative. PAST MEDICAL HISTORY:See Below , dementia, hiatal hernia PAST SURGICAL HISTORY:See Below, FAMILY HISTORY:See Below SOCIAL HISTORY:See Below, HOME MEDICATIONS:See Below ALLERGIES:See Below VITALS:See Below PHYSICAL EXAMINATION: GENERAL: Awake, alert, [id number]-[id number], in no distress HENT: Normocephalic, atraumatic. Oropharynx unremarkable. EYES: Normal conjunctiva. Sclera non-icteric. PERRLA. EOMI. NECK: Inspection normal. Non-tender. Supple. No nuchal rigidity. FROM. No masses. RESPIRATORY: Clear to auscultation. No wheezes. No rales. Normal respiratory effort. CARDIAC: Normal rate. Normal rhythm. No murmurs. No rubs. Extremities warm and well perfused. Pulses equal. No JVD. GI: Soft, non-distended. No tenderness to palpation. No rebound or guarding. No masses. RECTAL: Deferred. MUSCULOSKELETAL: Atraumatic. Chest examination reveals no tenderness. The back is symmetrical on inspection without obvious abnormality. There is no CVA tenderness to palpation. No joint edema. LOWER EXTREMITIES: Calves are equal size bilaterally and non-tender. No edema. No discoloration. NEURO: Normal sensorium. Mild generalized weakness but no focal sensory or motor deficits noted. Speech clear. No hallucinations. Cranial nerves II through XII intact. SKIN: No rash or jaundice noted. Brando Graham MD Past Med/Surg History Medical History (Updated 07/15/22 @ 20:17 by Brando Graham MD) Acute dehydration AMS (altered mental status) Dementia Hiatal hernia Hypokalemia Hypomagnesemia Osteoarthritis Poor historian unaware of why she takes Pantoprazole. denies heartburn and abdominal pain. Alert and Oriented x3. Surgical History History of cataract surgery RT History of colonoscopy History of total hip arthroplasty right History of total knee arthroplasty bilateral Family History Father , in his early 50s Coronary heart disease Myocardial infarction Mother , in her 90s Medical history non-contributory Brother Alcoholism Social History Smoking Status: Never smoker Second Hand Exposure: No; Hx Alcohol Use: No Hx Substance Use: No Preferred Language: Russian Communication Ability: Impaired Senior Mainframe Programmer Analyst Required: No Beliefs That Will Affect Care: None marital status: Current Living Situation: Spouse current occupational status: retired current occupation: Retired teacher and director of student activities at [employer] Feel Safe at Home: Yes Assistive Devices: None Allergies Allergies Allergy/AdvReac Type Severity Reaction Status Date / Time No Known Allergies Allergy Unknown Verified 07/14/21 00:27 Home Meds Home Medications Medication Instructions Recorded Confirmed donepezil 10 mg tablet 10 mg PO HS 07/14/21 07/14/21 famotidine 40 mg tablet 40 mg PO HS 07/14/21 07/14/21 omeprazole 40 mg capsule,delayed 40 mg PO DAILYBB 07/14/21 07/14/21 release Results & Data (ED) Vital Signs Vital Signs - 24 hr 07/15/22 19:21 07/15/22 19:33 07/15/22 19:33 Temperature 36.8 C Temperature Source Temporal Artery Scan Pulse Rate 100 H Pulse Rate [Apical] 79 Pulse Rhythm [Apical] Regular Respiratory Rate 18 19 Respiratory Effort / Characteristics Non-Labored Spontaneous Respiratory Depth Normal Normal Blood Pressure 118/64 Blood Pressure [Right Arm] 138/70 Blood Pressure Mean 82 Blood Pressure Mean [Right Arm] 92 Blood Pressure Position Sitting Pulse Oximetry 95 95 Oxygen Delivery Method Room Air Room Air Room Air Sepsis Recent Fever Within 48 Hours No Sepsis New/Unexplained Change in Mental Status No Sepsis Action Taken by Nursing No Action Required 07/15/22 20:12 07/15/22 21:00 Temperature Temperature Source Pulse Rate Pulse Rate [Apical] 66 64 Pulse Rhythm [Apical] Respiratory Rate 17 17 Respiratory Effort / Characteristics Respiratory Depth Normal Blood Pressure Blood Pressure [Right Arm] 151/78 H 148/77 H Blood Pressure Mean Blood Pressure Mean [Right Arm] 102 100 Blood Pressure Position Pulse Oximetry 96 95 Oxygen Delivery Method Room Air Room Air Sepsis Recent Fever Within 48 Hours Sepsis New/Unexplained Change in Mental Status Sepsis Action Taken by Nursing Laboratory Data Result diagrams: 10/02/22 19:38 07/15/22 19:38 Lab Results 07/15/22 07/15/22 07/15/22 Range/Units 19:38 19:38 19:38 WBC 8.15 (4.8-10.8) K/ul RBC 5.18 (3.93-5.22) M/uL Hgb 15.8 (12.0-16.0) g/dl Hct 46.2 H (34.1-44.9) % MCV 89.2 (80.0-100.0) fL MCH 30.5 (25.0-34.0) pg MCHC 34.2 (32.0-36.0) g/dL RDW Std Deviation 42.8 (36.4-46.3) fL RDW Coeff of Vincenzo 13.2 (11.5-14.5) % Plt Count 217 (130-400) K/uL MPV 10.1 (9.4-12.3) fL Immature Gran % (Auto) 0.2 % Neut % (Auto) 76.4 % Lymph % (Auto) 14.6 % Montague % (Auto) 6.4 % Eos % (Auto) 1.3 % Baso % (Auto) 1.1 % Neut # (Auto) 6.22 (1.4-6.5) K/uL Lymph # (Auto) 1.19 L (1.2-3.4) K/uL Montague # (Auto) 0.52 (0.24-0.82) K/uL Eos # (Auto) 0.11 (0-0.50) K/uL Baso # (Auto) 0.09 (0-0.2) K/uL Immature Gran # (Auto) 0.02 (0.00-0.02) K/uL Sodium 142 (136-145) mmol/L Potassium 3.4 L (3.5-5.1) mmol/L Chloride 103 (98-107) mmol/L Carbon Dioxide 27 (21-32) mmol/L Anion Gap 12 H (3-11) BUN 25 H (6-23) mg/dl Creatinine 0.88 (0.6-1.2) mg/dl Est Cr Clr Drug Dosing Not Reportable Est GFR ( Amer) 72.9 ml/min Est GFR (Non-Af Amer) 62.9 ml/min BUN/Creatinine Ratio 28.4 H (10-20) Glucose 123 H (70-99(Fasting)) mg/dl Calcium 10.0 (8.5-10.1) mg/dl Magnesium 1.8 (1.7-2.4) mg/dl Total Bilirubin 1.1 H (0.2-1.0) mg/dl AST 17 (13-39) U/L ALT 15 (7-52) U/L Alkaline Phosphatase 83 (34-104) U/L Troponin I High Sens 6.3 (0-14) pg/ml Total Protein 7.0 (6.0-8.3) gm/dl Albumin 4.5 (3.4-5.0) gm/dl Globulin 2.5 (2.5-4.0) gm/dl Albumin/Globulin Ratio 1.8 (0.9-2) TSH 3.236 (0.300-4.500) uIu/ml Urine Color Urine Appearance (Clear) Urine pH (4.5-7.5) Ur Specific Vicco (1.000-1.030) Urine Protein (Negative) Urine Glucose (UA) (Negative) Urine Ketones (Negative) Urine Blood (Negative) Urine Nitrite (Negative) Urine Bilirubin (Negative) Urine Urobilinogen (Negative) Ur Leukocyte Esterase (Negative) Urine WBC (Auto) (0-5) /hpf Urine RBC (Auto) (0-4) /hpf U Hyaline Cast (Auto) (0-5) /lpf U Epithel Cells (Auto) (0-5) /lpf Urine Bacteria (Auto) (Negative) Calcium Oxalate Crystal (None Prsent) SARS-CoV-2, RNA, NAAT (NEGATIVE) 07/15/22 07/15/22 Range/Units 19:38 20:45 WBC (4.8-10.8) K/ul RBC (3.93-5.22) M/uL Hgb (12.0-16.0) g/dl Hct (34.1-44.9) % MCV (80.0-100.0) fL MCH (25.0-34.0) pg MCHC (32.0-36.0) g/dL RDW Std Deviation (36.4-46.3) fL RDW Coeff of Vincenzo (11.5-14.5) % Plt Count (130-400) K/uL MPV (9.4-12.3) fL Immature Gran % (Auto) % Neut % (Auto) % Lymph % (Auto) % Montague % (Auto) % Eos % (Auto) % Baso % (Auto) % Neut # (Auto) (1.4-6.5) K/uL Lymph # (Auto) (1.2-3.4) K/uL Montague # (Auto) (0.24-0.82) K/uL Eos # (Auto) (0-0.50) K/uL Baso # (Auto) (0-0.2) K/uL Immature Gran # (Auto) (0.00-0.02) K/uL Sodium (136-145) mmol/L Potassium (3.5-5.1) mmol/L Chloride (98-107) mmol/L Carbon Dioxide (21-32) mmol/L Anion Gap (3-11) BUN (6-23) mg/dl Creatinine (0.6-1.2) mg/dl Est Cr Clr Drug Dosing Est GFR ( Amer) ml/min Est GFR (Non-Af Amer) ml/min BUN/Creatinine Ratio (10-20) Glucose (70-99(Fasting)) mg/dl Calcium (8.5-10.1) mg/dl Magnesium (1.7-2.4) mg/dl Total Bilirubin (0.2-1.0) mg/dl AST (13-39) U/L ALT (7-52) U/L Alkaline Phosphatase (34-104) U/L Troponin I High Sens (0-14) pg/ml Total Protein (6.0-8.3) gm/dl Albumin (3.4-5.0) gm/dl Globulin (2.5-4.0) gm/dl Albumin/Globulin Ratio (0.9-2) TSH (0.300-4.500) uIu/ml Urine Color Yellow Urine Appearance Cloudy A (Clear) Urine pH 5.0 (4.5-7.5) Ur Specific Vicco 1.021 (1.000-1.030) Urine Protein Trace H (Negative) Urine Glucose (UA) 1+ H (Negative) Urine Ketones Trace H (Negative) Urine Blood Negative (Negative) Urine Nitrite Negative (Negative) Urine Bilirubin Negative (Negative) Urine Urobilinogen Negative (Negative) Ur Leukocyte Esterase 2+ H (Negative) Urine WBC (Auto) >30 H (0-5) /hpf Urine RBC (Auto) 0-4 (0-4) /hpf U Hyaline Cast (Auto) 5-10 H (0-5) /lpf U Epithel Cells (Auto) >30 H (0-5) /lpf Urine Bacteria (Auto) 2+ H (Negative) Calcium Oxalate Crystal Present A (None Prsent) SARS-CoV-2, RNA, NAAT NEGATIVE (NEGATIVE) Administered Medications Discontinued Medications Sodium Chloride (Nss) 500 mls @ 999 mls/hr IV .Q31M KAYODE Stop: 07/15/22 20:15 Last Infusion: 07/15/22 20:13 Dose: 0 mls/hr Documented By: Admin: 07/15/22 19:39 Dose: 999 mls/hr Documented By: EMB Ceftriaxone Sodium (Rocephin) 1,000 mg in 50 mls @ 100 mls/hr IV NOW STA Stop: 07/15/22 21:51 Last Infusion: 07/15/22 22:06 Dose: 0 mls/hr Documented By: Admin: 07/15/22 21:35 Dose: 100 mls/hr Documented By: EMB Imaging Data Radiologist's Impression: Chest X-Ray 07/15/22 19:32 XR chest 1V portable HISTORY: 76 years-old Female weakness acute weakness COMPARISON: 07/13/2021 TECHNIQUE: Portable AP view of the chest FINDINGS: Cardiac silhouette is enlarged. Atherosclerosis of the thoracic aorta. No pneumo thorax. Chronic blunting of the lateral costophrenic angles. No pneumothorax, large pleural effusion or overt pulmonary edema. No airspace consolidation typical for pneumonia. Degenerative changes of the shoulders and spine with sigmoidal thoracolumbar scoliosis. IMPRESSION: No acute process. ACT 112: Negative or not required by law. The above report was generated using voice recognition software. It may contain grammatical, syntax or spelling errors. Electronically signed by: Shaquille Lundy M.D. 07/15/2022 7:50 PM Discharge Plan Visit Data Chief Complaint: Weakness Stated Complaint: FATIGUE, DIZZINESS, MODERATE DEMENTIA ED Provider: Brando Graham Discharge Problem: Generalized weakness, Adult failure to thrive Forms Stand Alone Forms: My [facility] Prescriptions Prescriptions: No Action donepezil 10 mg tablet 10 mg PO HS famotidine 40 mg tablet 40 mg PO HS omeprazole 40 mg capsule,delayed release(DR/EC) 40 mg PO DAILYBB Referrals Referrals: Abiola Gill [Primary Care Provider] -
[2022-07-15 20:18] LABS: Troponin I High Sensitivity 6.3 pg/ml (0-14)
[2022-07-15 20:20] LABS: Alanine Aminotransferase 15 U/L (7-52); Albumin Globulin Ratio 1.8 (0.9-2); Albumin Level 4.5 gm/dl (3.4-5.0); Alkaline Phosphatase 83 U/L (34-104); Anion Gap 12 (3-11); Aspartate Aminotransferase 17 U/L (13-39); BUN Creatinine Ratio 28.4 (10-20); Bilirubin,Total 1.1 mg/dl (0.2-1.0); Blood Urea Nitrogen 25 mg/dl (6-23); Carbon Dioxide 27 mmol/L (21-32); Chloride 103 mmol/L (98-107); Est GFR (African American) 72.9 ml/min; Est GFR (Non-African American) 62.9 ml/min; Globulin 2.5 gm/dl (2.5-4.0); Glucose 123 mg/dl (70-99(Fasting)); Magnesium 1.8 mg/dl (1.7-2.4); Potassium 3.4 mmol/L (3.5-5.1); Sodium 142 mmol/L (136-145)
[2022-07-15 20:55] LABS: Appearance Urine Cloudy (Clear); Bacteria Urine Automated 2+ (Negative); Bilirubin Urine Negative (Negative); Blood Urine Negative (Negative); Color Urine Yellow; Epithelial Cell Urine Auto >30 /lpf (0-5); Glucose Urine UA 1+ (Negative); Ketones Urine Trace (Negative); Leukocyte Esterase Urine 2+ (Negative); Nitrite Urine Negative (Negative); Protein Urine Trace (Negative); Specific Gravity Urine 1.021 (1.000-1.030); Urobilinogen Urine Negative (Negative); WBC Urine Automated >30 /hpf (0-5)
[2022-07-15 21:19] LABS: Calcium Oxalate Crystals Urine Present (None Prsent)
[2022-07-15 21:20] LABS: RBC Urine Automated 0-4 /hpf (0-4)
[2022-07-15] MEDS ORDERED: cefTRIAXone SODIUM 1,000 MG/50 ML BAG IV STA (21:22)
--- NOTE | 2022-07-15 22:20 | History & Physical Report ---
Date of Service July 15, 2022 Assessment & Plan (1) Adult failure to thrive: Plan: Patient has had a general decline over the past year, having been admitted on 07/14/2021 for similar symptoms Urinalysis may be infected versus contaminated, and will be treated empirically for UTI to see if there is any reversible component (2) Generalized weakness: (3) Dementia: Plan: Continue aspirin, bupropion, donepezil and memantine Consult PT/OT Treat (4) Urinary tract infection: Plan: Follow urine culture and sensitivity Empiric ceftriaxone 1 g IV daily Assess to see if there is any improvement in functioning after completion of treatment History of Present Illness Chief Complaint: The patient is brought to the emergency department by family due to concerns regarding decreased oral intake, generalized weakness and worsening dementia over the past few weeks. Primary Care Provider: Abiola Gill The patient is a 76-year-old female with a past medical history including adult failure to thrive, atypical chest pain, dementia, hiatal hernia, osteoarthritis, depression and GERD. She presents due to worsening generalized weakness, decreased oral intake and worsening dementia over the past few weeks. She has no specific symptoms of illness or injury otherwise. There has not been any recent travel or sick exposures. Allergies Allergy/AdvReac Type Severity Reaction Status Date / Time No Known Allergies Allergy Unknown Verified 07/15/22 22:41 Home Medications Medication Instructions Recorded Confirmed Type donepezil 10 mg tablet 10 mg PO HS 07/14/21 07/15/22 History omeprazole 40 mg capsule,delayed 40 mg PO DAILYBB 07/14/21 07/15/22 History release aspirin 81 mg tablet,delayed 81 mg PO QPM 07/15/22 07/15/22 History release atorvastatin 40 mg tablet 40 mg PO HS 07/15/22 07/15/22 History bupropion HCl 75 mg tablet 75 mg PO DAILY 07/15/22 07/15/22 History cholecalciferol (vitamin D3) 25 0 mcg PO DAILY 07/15/22 07/15/22 History mcg (1,000 unit) chewable tablet (Vitamin D3) memantine 10 mg tablet 10 mg PO BID 07/15/22 07/15/22 History Past Med/Surg History Medical History (Updated 07/16/22 @ 02:35 by Manuel Hills MD) Acute dehydration AMS (altered mental status) Dementia Hiatal hernia Hypokalemia Hypomagnesemia Osteoarthritis Poor historian unaware of why she takes Pantoprazole. denies heartburn and abdominal pain. Alert and Oriented x3. Surgical History History of cataract surgery RT History of colonoscopy History of total hip arthroplasty right History of total knee arthroplasty bilateral Family History Father , in his early 50s Coronary heart disease Myocardial infarction Mother , in her 90s Medical history non-contributory Brother Alcoholism Social History Smoking Status: Unknown if ever smoked Second Hand Exposure: No; Hx Alcohol Use: No Preferred Language: Armenian Communication Ability: Effective Insurance Advisor Required: No Beliefs That Will Affect Care: None marital status: Current Living Situation: Spouse current occupational status: retired current occupation: Retired teacher and director of student activities at [employer] Feels Safe at Home: Yes Safety Concerns: Feels Safe At This Time Assistive Devices: Glasses Review of Systems Review of Systems: The patient denies chest pain, palpitations, shortness of breath, dyspnea on exertion, cough, lower extremity swelling, sore throat, fevers, chills, sweats, nausea, vomiting, diarrhea , constipation, abdominal pain, pelvic pain, blood in urine or stool, dysuria, urinary frequency or urgency, lightheadedness, dizziness, headache, loss of consciousness, rash, abnormal bruising or bleeding, imbalance, focal weakness, numbness or tingling in arms or legs, generalized arthralgias or myalgias, back or neck pain, or night sweats. The review of systems is otherwise negative other than for that already noted above, and at least 10 systems have been reviewed. Physical Exam Physical Exam: The patient is awake, alert and oriented 3, well developed and well nourished, normocephalic and atraumatic, lying in bed and in no acute distress. HEENT--PERRL, EOMI, mucous membranes and oropharynx dry. Neck--supple. No JVD. No bruits. Thyroid normal, trachea midline, no adenopathy. Heart--normal S1 and S2. No murmurs, rubs or gallops. Lungs--clear bilaterally, no respiratory distress, no accessory muscle use. Abdomen--normal bowel sounds and soft. Nontender. Nondistended, no hernias or masses, no organomegaly. Extremities--no cyanosis or clubbing. No edema. There are good distal pulses b/l. Dermatologic--normal skin turgor, normal color, no abnormal lymph nodes, no rash. Neurologic--cranial nerves II through XII grossly intact. Rheumatologic--normal range of motion. Psychiatric--normal affect. Results & Data Results & Data ([facility]) Vital Signs (Past 12 Hours) Vital Signs Temp Pulse Pulse Resp BP BP Pulse Ox 07/15/22 21:00 64 17 148/77 H 95 07/15/22 20:12 66 17 151/78 H 96 07/15/22 19:33 79 19 138/70 95 07/15/22 19:33 07/15/22 19:21 36.8 C 100 H 18 118/64 95 O2 Del Method 07/15/22 21:00 Room Air 07/15/22 20:12 Room Air 07/15/22 19:33 Room Air 07/15/22 19:33 Room Air 07/15/22 19:21 Room Air Laboratory Results Laboratory Results WBC 8.15 K/ul (4.8-10.8) 07/15/22 19:38 RBC 5.18 M/uL (3.93-5.22) 07/15/22 19:38 Hgb 15.8 g/dl (12.0-16.0) 07/15/22 19:38 Hct 46.2 % (34.1-44.9) H 07/15/22 19:38 MCV 89.2 fL (80.0-100.0) 07/15/22 19:38 MCH 30.5 pg (25.0-34.0) 07/15/22 19:38 MCHC 34.2 g/dL (32.0-36.0) 07/15/22 19:38 RDW Std Deviation 42.8 fL (36.4-46.3) 07/15/22 19:38 RDW Coeff of Vincenzo 13.2 % (11.5-14.5) 07/15/22 19: Plt Count 217 K/uL (130-400) 07/15/22 19:38 MPV 10.1 fL (9.4-12.3) 07/15/22 19:38 Immature Gran % (Auto) 0.2 % 07/15/22 19:38 Neut % (Auto) 76.4 % 07/15/22 19:38 Lymph % (Auto) 14.6 % 07/15/22 19:38 Bailey % (Auto) 6.4 % 07/15/22 19:38 Eos % (Auto) 1.3 % 07/15/22 19:38 Baso % (Auto) 1.1 % 07/15/22 19:38 Neut # (Auto) 6.22 K/uL (1.4-6.5) 07/15/22 19:38 Lymph # (Auto) 1.19 K/uL (1.2-3.4) L 07/15/22 19:38 Bailey # (Auto) 0.52 K/uL (0.24-0.82) 07/15/22 19:38 Eos # (Auto) 0.11 K/uL (0-0.50) 07/15/22 19:38 Baso # (Auto) 0.09 K/uL (0-0.2) 07/15/22 19:38 Immature Gran # (Auto) 0.02 K/uL (0.00-0.02) 07/15/22 19:38 Sodium 142 mmol/L (136-145) 07/15/22 19:38 Potassium 3.4 mmol/L (3.5-5.1) L 07/15/22 19:38 Chloride 103 mmol/L (98-107) 07/15/22 19:38 Carbon Dioxide 27 mmol/L (21-32) 07/15/22 19:38 Anion Gap 12 (3-11) H 07/15/22 19:38 BUN 25 mg/dl (6-23) H 07/15/22 19:38 Creatinine 0.88 mg/dl (0.6-1.2) 07/15/22 19:38 Est Cr Clr Drug Dosing Not Reportable 07/15/22 19:38 Est GFR ( Amer) 72.9 ml/min 07/15/22 19:38 Est GFR (Non-Af Amer) 62.9 ml/min 07/15/22 19:38 BUN/Creatinine Ratio 28.4 (10-20) H 07/15/22 19:38 Glucose 123 mg/dl (70-99(Fasting)) H 07/15/22 19:38 Calcium 10.0 mg/dl (8.5-10.1) 07/15/22 19:38 Magnesium 1.8 mg/dl (1.7-2.4) 07/15/22 19:38 Total Bilirubin 1.1 mg/dl (0.2-1.0) H 07/15/22 19:38 AST 17 U/L (13-39) 07/15/22 19:38 ALT 15 U/L (7-52) 07/15/22 19:38 Alkaline Phosphatase 83 U/L (34-104) 07/15/22 19:38 Troponin I High Sens 6.3 pg/ml (0-14) 07/15/22 19:38 Total Protein 7.0 gm/dl (6.0-8.3) 07/15/22 19:38 Albumin 4.5 gm/dl (3.4-5.0) 07/15/22 19:38 Globulin 2.5 gm/dl (2.5-4.0) 07/15/22 19:38 Albumin/Globulin Ratio 1.8 (0.9-2) 07/15/22 19:38 TSH 3.236 uIu/ml (0.300-4.500) 07/15/22 19:38 Urine Color Yellow 07/15/22 20:45 Urine Appearance Cloudy (Clear) A 07/15/22 20:45 Urine pH 5.0 (4.5-7.5) 07/15/22 20:45 Ur Specific [place] 1.021 (1.000-1.030) 07/15/22 20:45 Urine Protein Trace (Negative) H 07/15/22 20:45 Urine Glucose (UA) 1+ (Negative) H 07/15/22 20:45 Urine Ketones Trace (Negative) H 07/15/22 20:45 Urine Blood Negative (Negative) 07/15/22 20:45 Urine Nitrite Negative (Negative) 07/15/22 20:45 Urine Bilirubin Negative (Negative) 07/15/22 20:45 Urine Urobilinogen Negative (Negative) 07/15/22 20:45 Ur Leukocyte Esterase 2+ (Negative) H 07/15/22 20:45 Urine WBC (Auto) >30 /hpf (0-5) H 07/15/22 20:45 Urine RBC (Auto) 0-4 /hpf (0-4) 07/15/22 20:45 U Hyaline Cast (Auto) 5-10 /lpf (0-5) H 07/15/22 20:45 U Epithel Cells (Auto) >30 /lpf (0-5) H 07/15/22 20:45 Urine Bacteria (Auto) 2+ (Negative) H 07/15/22 20:45 Calcium Oxalate Crystal Present (None Prsent) A 07/15/22 20:45 SARS-CoV-2, RNA, NAAT NEGATIVE (NEGATIVE) 07/15/22 19:38 Impressions Chest X-Ray 07/15/22 19:32 XR chest 1V portable HISTORY: 76 years-old Female weakness acute weakness COMPARISON: 07/13/2021 TECHNIQUE: Portable AP view of the chest FINDINGS: Cardiac silhouette is enlarged. Atherosclerosis of the thoracic aorta. No pneumothorax. Chronic blunting of the lateral costophrenic angles. No pneumothorax, large pleural effusion or overt pulmonary edema. No airspace consolidation typical for pneumonia. Degenerative changes of the shoulders and spine with sigmoidal thoracolumbar scoliosis. IMPRESSION: No acute process. ACT 112: Negative or not required by law. The above report was generated using voice recognition software. It may contain grammatical, syntax or spelling errors. Electronically signed by: Shaquille Lundy M.D. 07/15/2022 7:50 PM Code Status & VTE Plan Code Status Full code VTE Prophylaxis Plan VTE Prophylaxis will be ordered: Yes PG Care Time/CCT Total # of Minutes Spent Total Time Spent with Patient: Total time spent is greater than 50% in coordination of care (as documented) at patient's floor/unit and/or counseling patient: Coding Level of Care Code 77075 Initial Inpt Care Lvl 3 Diagnoses Adult failure to thrive R62.7 Generalized weakness R53.1 Dementia F03.90 Urinary tract infection N39.0
[2022-07-15] MEDS ORDERED: ACETAMINOPHEN 325 MG TAB PO PRN (23:18)
[2022-07-15] MEDS ORDERED: ONDANSETRON INJ 2 MG/ML 2 ML VIAL IV PRN (23:18)
[2022-07-15] MEDS: NSS + 20MEQ KCL 20 MEQ/1,000 ML BAG IV SCH (23:32)
[2022-07-15] MEDS: Patient's HEIGHT &/or WEIGHT Needed SCH ×2 (23:41→23:45)
[2022-07-16] MEDS: Patient's HEIGHT &/or WEIGHT Needed SCH (00:15)
[2022-07-16] MEDS: PANTOprazole 40 MG TAB PO SCH (06:13)
[2022-07-16 06:30] LABS: Basophils # (auto) 0.06 K/uL (0-0.2); Basophils % (auto) 0.9 %; Eosinophils # (auto) 0.08 K/uL (0-0.50); Eosinophils % (auto) 1.2 %; Hemoglobin 13.4 g/dl (12.0-16.0); Immature Granulocytes # (auto) 0.01 K/uL (0.00-0.02); Immature Granulocytes % (auto) 0.2 %; Lymphocytes # (auto) 1.39 K/uL (1.2-3.4); Lymphocytes % (auto) 21.5 %; Mean Corpuscular Hemoglobin 30.3 pg (25.0-34.0); Mean Corpuscular Hgb Conc 34.4 g/dL (32.0-36.0); Mean Corpuscular Volume 88.2 fL (80.0-100.0); Mean Platelet Volume 10.1 fL (9.4-12.3); Monocytes # (auto) 0.47 K/uL (0.24-0.82); Monocytes % (auto) 7.3 %; Neutrophils # (auto) 4.45 K/uL (1.4-6.5); Neutrophils % (auto) 68.9 %; Platelet Count 190 K/uL (130-400); RDW Standard Deviation 41.9 fL (36.4-46.3); Red Blood Count 4.42 M/uL (3.93-5.22); White Blood Count 6.46 K/ul (4.8-10.8)
[2022-07-16 07:00] LABS: Albumin Globulin Ratio 1.7 (0.9-2); Albumin Level 3.8 gm/dl (3.4-5.0); BUN Creatinine Ratio 34.9 (10-20); Bilirubin,Total 0.8 mg/dl (0.2-1.0); Calcium 8.7 mg/dl (8.5-10.1); Creatinine Clr Calc Pharmacy 47.5 ml/min; Est GFR (African American) 99.6 ml/min; Est GFR (Non-African American) 85.9 ml/min; Globulin 2.2 gm/dl (2.5-4.0); Magnesium 1.5 mg/dl (1.7-2.4); Potassium 3.7 mmol/L (3.5-5.1)
--- NOTE | 2022-07-16 07:51 | CT Scan Report ---
CT OF THE HEAD WITHOUT CONTRAST CLINICAL HISTORY: generalized weakness COMPARISON STUDY: Head CT and MRI of the brain July 14, 2021. CT DOSE: 537.48 mGy.cm TECHNIQUE: Helical axial images of the head were obtained without IV contrast. Automated exposure con trol was utilized for the study. A dose lowering technique was utilized adhering to the principles o f ALARA. FINDINGS: No acute intracranial hemorrhage, midline shift or mass effect is present. Right frontotemp oral encephalomalacia is unchanged and suggests old infarct. White matter hypodensities favor small v essel disease. There has been no change in appearance of the brain. The ventricular system is unremar kable. The basal cisterns are patent. No extra-axial collections are present. There are no findings t o suggest acute dural sinus thrombosis or acute territorial infarct. No significant calvarial abnorma lities are present. IMPRESSION: No acute intracranial findings. No change in appearance of the brain. ACT 112: Negative or not required by law. Electronically signed by: Nithin Nuno M.D. 07/16/2022 7:50 AM
--- NOTE | 2022-07-16 09:17 | Electrocardiogram Report ---
Test Reason : Blood Pressure : / mmHG Vent. Rate : 092 BPM Atrial Rate : 092 BPM P-R Int : 172 ms QRS Dur : 082 ms QT Int : 588 ms P-R-T Axes : 071 -45 054 degrees QTc Int : 727 ms Normal sinus rhythm Left axis deviation Inferior infarct , age undetermined Anterolateral infarct , age undetermined Prolonged QT Abnormal ECG When compared with ECG of 14-JUL-2021 00:10, Vent. rate has increased BY 31 BPM QT has lengthened Confirmed by Lance Kowalski ([id number]) on 07/16/2022 9:17:35 AM Referred By: Abiola Gill Confirmed By:Mike Kowalski
[2022-07-16] MEDS: MAGNESIUM SULFATE / D5W 1 GM/100 ML BAG IV SCH ×2 (09:30→11:55)
[2022-07-16] MEDS ORDERED: Flu Vaccine-High Dose (Fluzone-HD) PF 65+ 0.7mL SYR IM ONE (10:45)
[2022-07-16] MEDS ORDERED: PNEUMOCOCCAL Polysaccharide Vaccine 25mcg/0.5mL vial/Syr IM ONE (10:45)
[2022-07-16] MEDS: NSS + 20MEQ KCL 20 MEQ/1,000 ML BAG IV SCH ×2 (11:55→23:05)
--- NOTE | 2022-07-16 13:50 | Hospitalist Progress Note ---
Date of Service July 16, 2022 Assessment & Plan (1) Adult failure to thrive: Plan: Patient has had a general decline over the past year, having been admitted on 07/14/2021 for similar symptoms - Urinalysis may be infected versus contaminated - Empirically started on Rocephin - Urine Cx pending, blood cx negative thus far - No fever or leukocytosis - Per son, has lost about 30 lbs in the last 3 months - Consult RD for nutritional assessment and supplementation recommendations - PT/OT eval to assist in determining appropriate dispo (2) Generalized weakness: Plan: - PT/OT eval (3) Dementia: Plan: - Continue aspirin, bupropion, donepezil and memantine (4) Urinary tract infection: Plan: - Follow urine culture and sensitivity - Empiric ceftriaxone 1 g IV daily Plan Continue empiric abx. Consult PT/OT. Await urine cx. Consult case management to assist in dc planning. Discussed with son, plan is eventual transition to assisted living facility with memory support unit. However, he does not seem to be interested in making that happen with this admission. I discussed if from a physical standpoint she can return home with assist of their hired caregivers that we could still provide her with names of local facilities with memory support units that with the assistance of their PCP could begin reaching out to discuss transitioning patient there. Plan d/w Dr. Irizarry, further orders as warranted. Admission and Anticipated Discharge Date Admission Date: July 15, 2022 Subjective Patient seen on daily rounds this morning, she is resting comfortably in bed. She is pleasantly confused, when asked where she was she responded with "[place]?" She presently has no other complaints. Known h/o dementia and appears from documentation she was brought in for failure to thrive, increasing weakness and confusion. Currently is on antibiotics for a questionable UTI. Review of Systems Review of Systems: Reliable ROS is not obtainable from this patient d/t her dementia. Physical Exam Physical Exam: GENERAL: 76 yo Well-developed, well-nourished. NAD. LUNGS: Clear to auscultation bilaterally. No W/R/R. CARDIOVASCULAR: Regular rate and rhythm. ABDOMEN: Soft, non-tender and non-distended. BS normoactive x 4 quad. EXTREMITIES: No edema. Non-tender. Peripheral pulses +2/4. NEUROLOGIC: A&O x1. Nonfocal PSYCHIATRIC: Cooperative. Appropriate mood and affect. SKIN: Warm, dry, intact. No rashes or lesions. Results & Data Results & Data ([facility]) Vital Signs (Past 12 Hours) Vital Signs Temp Pulse Resp BP Pulse Ox O2 Del Method 07/16/22 07:30 Room Air 07/16/22 07:26 36.6 C 66 16 149/72 H 97 Room Air Laboratory Results 07/16/22 06:07 07/16/22 06:07 PG Care Time/CCT Total # of Minutes Spent Total Time Spent with Patient: Total time spent is greater than 50% in coordination of care (as documented) at patient's floor/unit and/or counseling patient: Coding Level of Care Code 52643 Subseq Hosp Care Lvl 2 Diagnoses Adult failure to thrive R62.7 Generalized weakness R53.1 Dementia F03.90 Urinary tract infection N39.0
[2022-07-16] MEDS: buPROPion HCl 75 MG TABLET PO SCH (15:02)
[2022-07-16] MEDS ORDERED: cefTRIAXone SODIUM 1,000 MG in DEXTROSE 5% 50 ML IV SCH (18:00)
[2022-07-16] MEDS: MEMANTINE HCL 10 MG TAB PO SCH (20:49)
[2022-07-16] MEDS ORDERED: ATORVASTATIN 40 MG TAB PO SCH (21:00)
[2022-07-16] MEDS ORDERED: DONEPEZIL HCL 10 MG TAB PO SCH (21:00)
[2022-07-16] MEDS ORDERED: FAMOTIDINE 40 MG TABLET PO SCH (21:00)
[2022-07-16] MEDS ORDERED: ASPIRIN 81 MG ECTAB PO SCH (21:00)
[2022-07-17] MEDS: PANTOprazole 40 MG TAB PO SCH (05:10)
[2022-07-17 06:33] LABS: Basophils # (auto) 0.07 K/uL (0-0.2); Basophils % (auto) 1.3 %; Eosinophils # (auto) 0.09 K/uL (0-0.50); Eosinophils % (auto) 1.7 %; Hemoglobin 12.9 g/dl (12.0-16.0); Immature Granulocytes # (auto) 0.02 K/uL (0.00-0.02); Immature Granulocytes % (auto) 0.4 %; Lymphocytes # (auto) 1.19 K/uL (1.2-3.4); Lymphocytes % (auto) 22.8 %; Mean Corpuscular Hemoglobin 30.4 pg (25.0-34.0); Mean Corpuscular Hgb Conc 33.9 g/dL (32.0-36.0); Mean Corpuscular Volume 89.4 fL (80.0-100.0); Monocytes # (auto) 0.37 K/uL (0.24-0.82); Monocytes % (auto) 7.1 %; Neutrophils # (auto) 3.47 K/uL (1.4-6.5); Neutrophils % (auto) 66.7 %; Platelet Count 196 K/uL (130-400); RDW Coefficient of Variation 13.3 % (11.5-14.5); RDW Standard Deviation 43.5 fL (36.4-46.3); Red Blood Count 4.25 M/uL (3.93-5.22); White Blood Count 5.21 K/ul (4.8-10.8)
[2022-07-17 06:48] LABS: Albumin Level 3.6 gm/dl (3.4-5.0); BUN Creatinine Ratio 21.3 (10-20); Bilirubin,Total 0.9 mg/dl (0.2-1.0); Calcium 8.3 mg/dl (8.5-10.1); Creatinine Clr Calc Pharmacy 49.1 ml/min; Est GFR (African American) 100.6 ml/min; Est GFR (Non-African American) 86.8 ml/min; Globulin 1.8 gm/dl (2.5-4.0); Magnesium 1.8 mg/dl (1.7-2.4); Potassium 4.1 mmol/L (3.5-5.1); Total Protein 5.4 gm/dl (6.0-8.3)
[2022-07-17] MEDS: MEMANTINE HCL 10 MG TAB PO SCH (09:23)
[2022-07-17] MEDS: buPROPion HCl 75 MG TABLET PO SCH (09:23)
[2022-07-17] MEDS: NSS + 20MEQ KCL 20 MEQ/1,000 ML BAG IV SCH (11:04)
[2022-07-17] MEDS ORDERED: cefTRIAXone SODIUM 1,000 MG in DEXTROSE 5% 50 ML IV SCH (15:00)
--- NOTE | 2022-07-17 15:04 | Discharge Summary ---
Date of Service July 17, 2022 Admission HPI Per Admitting Provider The patient is a 76-year-old female with a past medical history including adult failure to thrive, atypical chest pain, dementia, hiatal hernia, osteoarthritis, depression and GERD. She presents due to worsening generalized weakness, decreased oral intake and worsening dementia over the past few weeks. She has no specific symptoms of illness or injury otherwise. There has not been any recent travel or sick exposures. Principal Diagnosis 1. Progressive failure to thrive in setting of advanced dementia 2. Debility 3. Possible urinary tract infection 4. Seizure-like activity Discharge Exam GENERAL: 76 yo Well-developed, well-nourished. NAD. LUNGS: Clear to auscultation bilaterally. No W/R/R. CARDIOVASCULAR: Regular rate and rhythm. ABDOMEN: Soft, non-tender and non-distended. BS normoactive x 4 quad. EXTREMITIES: No edema. Non-tender. Peripheral pulses +2/4. NEUROLOGIC: A&O x1. Nonfocal PSYCHIATRIC: Cooperative. Appropriate mood and affect. SKIN: Warm, dry, intact. No rashes or lesions. Discharge Data Allergies Allergy/AdvReac Type Severity Reaction Status Date / Time No Known Allergies Allergy Unknown Verified 07/15/22 22:41 Consultations 07/15/22 21:29 ED Decision to Admit Stat Ordered Studies Chest X-Ray 07/15/22 19:32 XR chest 1V portable HISTORY: 76 years-old Female weakness acute weakness COMPARISON: 07/13/2021 TECHNIQUE: Portable AP view of the chest FINDINGS: Cardiac silhouette is enlarged. Atherosclerosis of the thoracic aorta. No pneumothorax. Chronic blunting of the lateral costophrenic angles. No pneumothorax, large pleural effusion or overt pulmonary edema. No airspace consolidation typical for pneumonia. Degenerative changes of the shoulders and spine with sigmoidal thoracolumbar scoliosis. IMPRESSION: No acute process. ACT 112: Negative or not required by law. The above report was generated using voice recognition software. It may contain grammatical, syntax or spelling errors. Electronically signed by: Shaquille Lundy M.D. 07/15/2022 7:[address] 07/15/22 20:17 CT OF THE HEAD WITHOUT CONTRAST CLINICAL HISTORY: generalized weakness COMPARISON STUDY: Head CT and MRI of the brain July 14, 2021. CT DOSE: 537.48 mGy.cm TECHNIQUE: Helical axial images of the head were obtained without IV contrast. Automated exposure control was utilized for the study. A dose lowering technique was utilized adhering to the principles of ALARA. FINDINGS: No acute intracranial hemorrhage, midline shift or mass effect is present. Right frontotemporal encephalomalacia is unchanged and suggests old infarct. White matter hypodensities favor small vessel disease. There has been no change in appearance of the brain. The ventricular system is unremarkable. The basal cisterns are patent. No extra-axial collections are present. There are no findings to suggest acute dural sinus thrombosis or acute territorial infarct. No significant calvarial abnormalities are present. IMPRESSION: No acute intracranial findings. No change in appearance of the brain. ACT 112: Negative or not required by law. Electronically signed by: Nithin Nuno M.D. 07/16/2022 7:50 AM Hospital Course (1) Adult failure to thrive: Patient has had a general decline over the past couple of years, having been admitted on 07/14/2021 for similar symptoms - Urinalysis may be infected versus contaminated - Empirically started on Rocephin - Urine Cx pending, blood cx negative thus far - No fever or leukocytosis - Per son, has lost about 30 lbs in the last 3 months - Consult RD for nutritional assessment and supplementation recommendations, appreciate input, advised Boost or carnation TID w/ meals - PT/OT eval to assist in determining appropriate dispo-can return home with 24- hr supervision (2) Generalized weakness: - PT/OT eval (as above) - Ordered a Vitamin B12 level, PCP can f/u on this (3) Dementia: - Continue aspirin, bupropion, donepezil and memantine (4) Urinary tract infection: - Follow urine culture and sensitivity - Empiric ceftriaxone 1 g IV daily - Urine culture with mixed organisms but given her dementia in ability to provide a reliable ROS coupled with her grossly abnormal UA, will plan to treat for total of 5 days. Transition to Cefdinir 300mg BID x 2 more days. (5) Seizure-like activity: - Occurred on 07/16, described by son as head rolled back, became incoherent with generalized shaking x 15 seconds while they called for assistance - Sounds like could be true seizure; however, in context of UTI, would not treat as it would be considered provoked - Spoke with Dr. Whitt regarding this, he advised would not consider w/u and antiseizure meds in this instance, if a second event occurred, could be seen in neuro clinic and w/u could be ordered - He did not feel that this should prohibit or delay her d/c Plan Discussed with son, Audie, immediate plan is for pt to return home with her and increase caregiver services but he recognizes that eventually both she and her will need to transition to an assisted living facility with a memory support unit. However, he does not seem to be interested in making that happen with this admission. Therapy notes she can return home with 24-hr supervision. This was relayed to her son and at this time she is medically stable for discharge home and complete 2 more days of antibiotics. Also will arrange for PCP follow up prior to dc. Case management to arrange for home health to f/u with patient at home as well. Plan has been d/w Dr. Irizarry who has also seen and evaluated this patient and agrees with aforementioned. Total Time Total Time Spent Total Time Spent (In Minutes): >30 minutes Discharge Plan Discharge Items Patient Disposition: Home - Home Health Services Reason For Visit: CONFUSION,WEAKNESS Discharge Diagnosis: urinary tract infection questionable seizure activity Activity: Resume your previous activity Non-emergency contact: Primary Care Provider Call non-emergency contact if: you have any medication questions and your symptoms worsen Follow-up/Referrals: Abiola Gill [Primary Care Provider] - 07/24/22 10:30 am (Appointment will be with ) Diet: Regular Addtl Attending Provider Instructions: You were hospitalized due to generalized weakness with poor appetite and oral intake. Your urine studies appeared consistent with a urinary tract infection which certainly could contribute to worsening weakness, confusion, and poor appetite leading to dehydration. You were provided intravenous fluids to support hydration as well as started on antibiotic to treat the infection. It was reported that you had a seizure-like event on the evening of 07/16. I did discuss this with the neurologist semiconductor processor who felt that it is certainly possible that this was in fact a seizure. However, in the presence of an infection, this would be considered a first-time seizure that was provoked by infection. Treatment with anti-seizure medications and full work up is not indicated for a first time seizure. However, if a second episode similar to this would occur, it would warrant further work up (including an MRI and EEG) and possibly considerat ion for anti-seizure medications. A referral can be made to the neurology clinic by your primary care physician. You are being sent home on 2 more days of an oral antibiotic called Cefdinir. This medication will be taken twice a day (once in the morning and once at night) for the next 2 days to complete treatment. Your next dose is due on 07/18/22 in the morning. A prescription has been sent to your preferred pharmacy on file. Please follow up with your primary care physician within 1 week of discharge. An appointment has been set up for you prior to discharge on your behalf. It is recommended that you have 24-hour care at home. If your caregiver services can be increased, that is strongly advised. Home health with physical and occupational therapy will also be arranged to follow up with you at home. In the event of any questions/concerns following your discharge from the hospital, please call the nonemergency number listed on your discharge paperwork. In the event of a medical emergency, call 911. Pending Studies at Discharge: No Stand-Alone Forms: My [facility], Smoking Cessation Medications and DC Order Prescriptions: New cefdinir 300 mg capsule 300 mg PO BID Qty: 4 0RF Continued donepezil 10 mg tablet 10 mg PO HS omeprazole 40 mg capsule,delayed release(DR/EC) 40 mg PO DAILYBB atorvastatin 40 mg tablet 40 mg PO HS aspirin [Aspir-Low] 81 mg Tablet,Delayed Release (Dr/Ec) 81 mg PO QPM bupropion HCl 75 mg tablet 75 mg PO DAILY memantine 10 mg tablet 10 mg PO BID cholecalciferol (vitamin D3) [Vitamin D3] 25 mcg (1,000 unit) Tablet,Chewable 0 mcg PO DAILY Discharge Orders: Discharge Order (Routine); Ordered 07/17/22 Ordered By: Yessica Lee Admission Data Admit Date/Time: 07/15/22 22:19 Attending Provider: Jasen Irizarry Admit Provider: Manuel Hills Primary Care Provider: Abiola Gill Other Providers: Manuel Hills Coding Level of Care Code D/C DAY MANAGEMENT >30 MINS Diagnoses Adult failure to thrive R62.7 Generalized weakness R53.1 Dementia F03.90 Urinary tract infection N39.0 Seizure-like activity R56.9
== END 2022-07-17 18:01 | disposition home health service (06) | DRG 690 ==
LOC: ED 19:18 → SUATTDRO 22:19 → 3E 22:19
DX: K21.9 Gastro-esophageal reflux disease without esophagitis; Z96.653 Presence of artificial knee joint, bilateral; Z96.641 Presence of right artificial hip joint; N39.0 Urinary tract infection, site not specified; R62.7 Adult failure to thrive; R56.9 Unspecified convulsions; F03.B0 Unspecified dementia, moderate, without behavioral disturbance, psychotic disturbance, mood disturbance, and anxiety